=== PATIENT | male | born 1965 | race Caucasian/White ===

== ENCOUNTER 2025-02-15 19:55 | Emergency (ER) | payer MEDICARE, SELFPAY ==
--- NOTE | ~2025-02-15 | CT_ITS ---
CT cervical spine wo con Ordering provider: Emanuel Rivera MD History: . fall . Comparison: None. Technique: CT of the cervical spine was performed without contrast. Sagittal and coronal reformatted images were also obtained and reviewed. Automated exposure control and iterative reconstruction quan hnique were employed. The dose-length product was 392.73 mGy-cm. FINDINGS: VERTEBRAE: No subluxation or acute fracture. The occipital condyles are intact. Degenerative changes of the spine. DISC SPACES: Narrowing of the disc C5-C6. Uncovertebral joint osteoarthritic changes seen at the same level. Bilateral narrowing of the foramin a at the level of C3-C4, C4-C5, and C5-C6 PARASPINOUS SOFT TISSUES: Normal. IMPRESSION: No acute osseous abnormality cervical spine. Degenerative disc disease of the level of C5-C6. Multilevel intervertebral foraminal narrowing. Reviewed, dictated and finalized at location A. IMPRESSION: No acute osseous abnormality cervical spine. Degenerative disc disease of the level of C5-C6. Multilevel intervertebral fora christine narrowing.
--- NOTE | ~2025-02-15 | XR_ITS ---
XR shoulder RT min 2V Ordering provider: Emanuel Rivera MD History: . fall . Comparison: None. FINDINGS: BONES: No acute fracture or dislocation. JOINT SPACES: The acromioclavicular joint is normal. The glenohumeral joint is normal. SOFT TISSUES: Normal. IMPRESSION: No acute osseous abnormality right shoulder. Reviewed, dictated and finalized at location A.
--- NOTE | ~2025-02-15 | CT_ITS ---
CT brain wo con Ordering provider: Emanuel Rivera MD History: 59 years Male with . fall . Comparison: None. Technique: CT of the head without contrast. Radiation reduction technique utilized. The dose-length product was 681 mGy-cm. FINDINGS: BRAIN PARENCHYMA AND CSF SPACES: No midline shift, mass effect or hemorrhage. The brain parenchyma a nd CSF spaces are otherwise normal. VISUALIZED PARANASAL SINUSES: Bilateral ethmoid sinus disease. Otherwise, Well aerated. MASTOIDS: Well aerated. BONES: The bones appear intact. SOFT TISSUES: Visualized nasopharynx is normal. Superficial soft tissues are normal. IMPRESSION: No acute intracranial findings. Reviewed, dictated and finalized at location A.
--- NOTE | ~2025-02-15 | XR_ITS ---
XR ribs RT 2V Ordering provider: Emanuel Rivera MD History: . fall . Comparison: None. FINDINGS: BONES: Fracture of the anterior and the right 10th rib. Possible lucency in the lateral portion of th e 12th rib is not excluded. LUNGS: No effusions or infiltrates. No pneumothorax. SOFT TISSUES: Normal. IMPRESSION: Fracture of the anterior end of the right 10th rib. Possible lucency in the gallbladder. Clinical cor relation advised. Reviewed, dictated and finalized at location A. IMPRESSION: Fracture of the anterior end of the right 10th rib. Possible lucency in the gal lbladder. Clinical correlation advised.
[2025-02-15 19:53] VITALS: BP 129/112; PULSE 90; RESP 20; TEMP 36.7; O2SAT 100
[2025-02-15 20:20] VITALS: BP 157/91; PULSE 84; RESP 19; O2SAT 98
--- NOTE | 2025-02-15 20:27 | ED.FALL ---
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 Patient presents after he had a mechanical fall striking the right side of his head, neck and shoulder against the cabinet. Patient states he has had chronic knee pain and he fell to the ground but did not lose consciousness. No new pain or injury to the knee but he is having pain in the shoulder and right-sided rib cage and head/neck. Does not take any medications and does not take any blood thinners. Denies any other substances besides cocaine use. Was otherwise in his normal state of health. Related Data Allergies Allergy/AdvReac Type Severity Reaction Status Date / Time No Known Allergies Allergy Verified 02/15/25 20:03 Review of Systems Review of Systems: As reviewed above in HPI Exam Narrative: GENERAL: [Well-appearing, well-nourished, and in no acute distress.] HEAD: [Normocephalic, atraumatic.] EYES: [PERRLA and EOMI.] ENT: Nares clear, no rhinorrhea or epistaxis. Mucous membranes moist. NECK: Supple. CHEST: [Clear to auscultation. No respiratory distress.] Tenderness to palpation over the lateral right chest wall without any step-offs deformities. HEART: [Regular rate and rhythm]. No murmur heard. [Normal peripheral pulses.] ABDOMEN: [Soft, nondistended], [nontender], [No rigidity or guarding] EXTREMITIES: Tenderness to palpation over the right proximal shoulder/upper extremity region with slight deformity palpable. No crepitus or overlying skin changes. Pain with manipulation and movement/abduction. Distal neuro vasculature is intact, range of motion is full at the elbow, wrist and senior systems programmer strength is full. Right knee with surgical scars are intact without any laxity or new injury appreciable. Mild paraspinal tenderness over the cervical spine but no midline tenderness. SKIN: Warm, dry, no rash. NEURO: [No focal deficits]. Alert and oriented [x3.] PSYCH: [Normal mood and affect.] Course Vital Signs Vital signs: Vital Signs Temperature 36.7 C 02/15/25 19:53 Pulse Rate 90 02/15/25 19:53 Respiratory Rate 20 02/15/25 19:53 Blood Pressure 129/112 H 02/15/25 19:53 Pulse Oximetry 100 02/15/25 19:53 Oxygen Delivery Room Air 02/15/25 19:53 Temperature 36.7 C 02/15/25 19:53 Pulse Rate 79 02/15/25 22:51 Respiratory Rate 16 02/15/25 22:51 Blood Pressure 157/91 H 02/15/25 20:20 Pulse Oximetry 98 02/15/25 22:51 Oxygen Delivery Room Air 02/15/25 19:53 MDM - Fall MDM Narrative Medical decision making narrative: 59-year-old male presenting to the ER after mechanical fall. He struck the right-sided of his head and neck/shoulder against the cabinet while he fell. He states his knee buckled and gave out on him but he was able to get up unassisted. Presents from a facility where he is being treated for cocaine use. Denies any chronic medications or allergies. He is complaining of pain in his right shoulder and proximal arm as well as his head neck. He has what appears to be a deformity to his right upper extremity near the shoulder with raising concerns for fracture versus dislocation. He has no midline spinal tenderness but is complaining of significant pain and stiffness. CTs of the head cervical spine and x-rays of the right upper extremity shoulder and right-sided rib cage was also ordered. Patient was given Dilaudid for analgesia and re-evaluated. CT of the head shows no acute intracranial findings. Rib series shows a fracture of the anterior and of the right 10th rib. Possible lucency in the 12th rib not excluded but no pneumothorax or hemothorax. Shoulder x-ray shows no acute osseous abnormality. CT of the cervical spine is pending. Lidocaine patch and Sidney given for additional analgesia as well as a incentive spirometer with respiratory therapy called to provide teaching. Patient re-evaluated with improved analgesia, discussed rib fracture findings and will be discharged home upon completion of his CT cervical spine read. Patient will be sent home with as needed pain medications as well as lidocaine patches and incentive spirometry and will follow up with his regular doctor outpatient. Medical Records Attestation: I reviewed the patient's medical records. Lab Data Attestation: I reviewed the patient's lab results. Imaging Data Attestation: I personally reviewed and interpreted this imaging study as follows: My impression: Impressions Shoulder X-Ray 02/15/25 21:57 IMPRESSION: No acute osseous abnormality right shoulder. Ribs X-Ray 02/15/25 21:59 IMPRESSION: Fracture of the anterior end of the right 10th rib. Possible lucency in the gallbladder. Clinical correlation advised. Head CT 02/15/25 22:19 IMPRESSION: No acute intracranial findings. Discharge Plan Discharge Clinical Impression: Fracture of right tenth rib, CHI (closed head injury), Fall, Right shoulder pain Patient Disposition: Home Condition: Stable Instructions: Antibiotic Form, Rib Fracture (ED) Additional Instructions: You fractured the 10th rib on the right side, no other definitive injuries on your scans and imaging. We will send you home with as needed pain control medications and lidocaine patches. Use the incentive spirometer to make sure that you have good inhalation and expiration to prevent any lung issues from the rib fracture. Follow-up with regular doctor. Return with any new or worsening concerns. Patient Language: Nauruan Prescriptions: New ketorolac 10 mg tablet 10 mg PO Q8H PRN (Reason: pain) 5 Days Qty: 20 0RF Rx Instructions: maximum total duration of 5 days from all oral, intranasal, or parenteral formulations lidocaine 5 % adhesive patch,medicated 1 patch topical DAILY Qty: 15 0RF Rx Instructions: leave on most painful area for up to 12 hrs methocarbamol 750 mg tablet 750 mg PO TID PRN (Reason: pain) Qty: 20 0RF acetaminophen [Tylenol Extra Strength] 500 mg tablet 1,000 mg PO TID PRN (Reason: pain) Qty: 30 0RF Follow-up/Referrals: PHYSICIAN,SHOES SALESPERSON [Primary Care Provider] -
[2025-02-15] MEDS: HYDROmorphone HCL INJ (*CRX) 2 MG/ML VIAL 1 MG IV PUSH (20:50)
--- NOTE | 2025-02-15 21:11 | PC.NURSE ---
patient contact is ada- number is [phone]
--- OUTSIDE RECORDS SUMMARY | 2025-02-15 21:23 | XMS_ITS | Encounter Summary ---
Author Organization [facility] Address [address] [place] [address] Phone Care Team Providers Care Technical Sales Engineer Name Role Phone Gee Zuñiga MD Primary Care Provider Reason for Visit * Reason Onset Date Comments Refill Request 03/15/2013 Encounter Details Date Type Department Care Team (Late st Contact Info) Description 03/15/2013 Refill Claudia [facility] [address] [place] [place], [place] [address] Deven Theodore MD [address] [place] [address] Refill Request Social History Tobacco Use Types Packs/Day Years Used Date Smoking Tobacco: Former Comments:2 cigarettes a day Alcohol Use Standard Drinks/Week Comments No 0 (1 standard drink = 0.6 oz pur e alcohol) Sex and Gender Information Value Date Recorded Sex Assigned at Not on file 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 Last rf 03/06/13, #30 Hydrocodone. documented in this encounter Plan of Treatment Upcoming Encounters Date Type Department Care Team (Late st Contact Info) Description 03/04/2025 1:10 PM CDT Office Visit Dermatology on [facility] [address] [place], [place] [address] Ziggy Smith MD [address] [place], [place] [phone] documented as of this encounter Visit Diagnoses Not on filedocumented in this encounter Care Teams Technical Sales Engineer Relationship Specialty Start Date End Date Gee Zuñiga MD [address] [place] [address] PCP - General 11/27/20 documented as of this encounter
--- OUTSIDE RECORDS SUMMARY | 2025-02-15 21:23 | XMS_ITS | Clinical Summary ---
Author Organization [facility] Address [address] [place] [address] Phone Care Team Providers Care Welt Trimming Machine Operator Name Role Phone Na Skinner MD Primary Care Provider Allergies Active Allergy Reactions Criticality Noted Date Comments Cephalosporins Rash,Swelling High 09/25/2020 Anaphylaxis Topiramate Other (see Comments) 09/25/2020 Medications DULoxetine (CYMBALTA) [address] Aguilera ions:Chronic pain syndrome Take 1 Capsule by mouth nightly. Start after completing 3 weeks of the 30mg dose, if tolerating. 90 Capsule 2 Active Additional Information Patient not taking.Reported on 08/17/2022 HYDROcodone-acet aminophen (NORCO) 10-325 MG TabletIndication s:Chronic knee pain after total replacement of right knee joint Take 1 Tablet by mouth every 8 hours as needed for Moderate or more severe pain. 90 Tablet 3 Active HYDROcodone-acet aminophen (NORCO) 10-325 MG TabletIndication s:Chronic knee pain after total replacement of right knee joint Take 1 Tablet by mouth every 8 hours as needed for Moderate or more severe pain. 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 Family History Medical History Relation Name Comments Cancer Father Diabetes Father Relation Name Status Comments Father Mother Other Social History Tobacco Use Types Packs/Day Years Used Date Smoking Tobacco: Former Cigarettes Smokeless Tobacco: Never Tobacco Cessation:Counseling Given: Not Answered Alcohol Use Standard Drinks/Week Comments Not Currently 0 (1 standard drink = 0.6 oz pur e alcohol) PHQ-2 Answer Date Recorded Total Score - Questions 1-9 0 10/06 Sex and Gender Information Value Date Recorded Sex Assigned at Not on file 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 Gender Identity Not on file Sexual Orientation Not on file Last Filed Vital Signs Vital Sign Reading Time Taken Comments Blood Pressure 141/70 09/21/2022 1:41 PM FBI PROFILER Pulse 79 09/21/2022 1:41 PM FBI PROFILER Temperature 35.8 C (96.5 F) 09/21/2022 1:31 PM FBI PROFILER Respiratory Rate 20 09/21/2022 1:41 PM FBI PROFILER Oxygen Saturation 92% 09/21/2022 1:41 PM FBI PROFILER Inhaled Oxygen Concentration - - Weight 91.1 kg (200 lb 12.8 oz) 10/20/2022 1:10 PM FBI PROFILER Height 165.1 cm (5' 5) 10/20/2022 1:10 PM FBI PROFILER Body Mass Index 33.41 10/20/2022 1:10 PM FBI PROFILER Plan of Treatment Health Maintenance Due Date Last Done Comments Hepatitis C Virus (HCV) Screening 1965 TdaP Immunization 1965 Hepatitis B Immunization (1 of 3 - 19+ 3-dose series) 1984 Cologuard 2010 Colonoscopy 2010 Colorectal Cancer Screening 2010 Immunochemical Fecal Occult Blood 2010 Pneumococcal Immunization (50+ years) (1 of 1 - PCV) 2015 Zoster Immunization (1 of 2) 2015 PSA Discussion 2020 SARS-COV-2 Immunization ( - season) 2024 10/08/2020, 09/04/2020 Influenza Immunization (Season Ended) 2025 07/05/2022, 07/12/2019, 06/24/2019, Additional history exists Respiratory Syncytial Virus (RSV) Immunization (Adult) (1 - 1-dose 75+ series) 2040 Human Papillomavirus (HPV) Immunization Aged Out No longer eligible based on patient's age to complete this topic Meningococcal Immunization (ACWY) Aged Out No longer eligible based on patient's age to complete this topic Rotavirus Immunization Aged Out No lo nger eligible based on patient's age to complete this topic Medical Devices Implanted Type Area Tyre Fitter Device Identifier Shelf Expiration Date Model / Serial / Lot Cement Biomet - [id number] Implanted:Qty: 1 on 10/21/2020 by Rubén Hill MD at [facility] IMPLANT Right: [employer] 04/04/2025 [id number] / / [id number] Cement Biomet - [id number] Implanted:Qty: 1 on 10/21/2020 by Rubén Hill MD at [facility] IMPLANT Right: [employer]nee [employer] 04/04/2025 [id number] / / [id number] Cement [employer] - [id number] Implanted:Qty: 1 on 10/21/2020 by Rubén Hill MD at [facility] IMPLANT Right: [employer]nee [employer] 11/02/2024 [id number] / / [id number] [employer]ement [employer] - [id number] Implanted:Qty: 1 on 10/21/2020 by Rubén Hill MD at [facility] IMPLANT Right: [employer]nee [employer] 11/02/2024 [id number] / / [id number] Femoral Bushings Set Implanted:Qty: 1 on 10/21/2020 by Rubén Hill MD at [facility] Right: Knee [employer] 04/23/2025 [id number] / / [id number] Rs Axle Implanted:Qty: 1 on 10/21/2020 by Rubén Hill MD at [facility] Right: Knee [employer] 05/31/2030 [id number] / / [id number] Straight Im Stem With Screw Implanted:Qty: 1 on 10/21/2020 by Rubén Hill MD at [facility] Right: Knee [employer] 07/08/2029 [id number] / / [id number] Bowed Im Stem With Screw Implanted:Qty: 1 on 10/21/2020 by Rubén Hill MD at [facility] Right: Knee [employer] 04/04/2029 [id number] / / [id number] Resurfacing Femoral Component Implanted:Qty: 1 on 10/21/2020 by Rubén Hill MD at [facility] Right: Knee [employer] 03/31/2030 [id number] / / [id number] Tibial Bushing Implanted:Qty: 1 on 10/21/2020 by Rubén Hill MD at [facility] Right: Knee [employer] 08/19/2025 [id number] / / [id number] Tibial Bearing Implanted:Qty: 1 on 10/21/2020 by Rubén Hill MD at [facility] Right: Knee [employer] 06/25/2025 [id number] / / [id number] Modular Tibial Base With Plug Implanted:Qty: 1 on 10/21/2020 by Rubén Hill MD at [facility] Right: Knee [employer] 03/22/2025 [id number] / / [id number] Locking Pin Implanted:Qty: 1 on 10/21/2020 by Rubén Hill MD at [facility] Right: Knee [employer] 08/19/2025 [id number] / / [id number] Yoke Implanted:Qty: 1 on 10/21/2020 by Rubén Hill MD at [facility] Right: [employer]nee [employer] 09/08/2030 [id number] / / [id number] Tibial Bearing Implanted:Qty: 1 on 01/12/2022 by Rubén Hill MD at [facility] Right: Knee [employer] 07/29/2025 [id number] / / [id number] Tibial Bushing Implanted:Qty: 1 on 01/12/2022 by Rubén Hill MD at [facility] Right: [employer]nee [employer] 11/30/2026 [id number] / / [id number] Locking Pin Implanted:Qty: 1 on 01/12/2022 by Rubén Hill MD at [facility] Right: [employer]nee [employer] 12/05/2026 [id number] / / [id number] Yoke Implanted:Qty: 1 on 01/12/2022 by Rubén Hill MD at [facility] Right: Knee [employer] 12/11/2031 [id number] / / [id number] Femoral Bushings Set Implanted:Qty: 1 on 01/12/2022 by Rubén Hill MD at [facility] Right: Knee [employer] 04/27/2026 [id number] / / [id number] Rs Axle Implanted:Qty: 1 on 01/12/2022 by Rubén Hill MD at [facility] Right: Knee [employer] 06/30/2031 [id number] / / [id number] Insurance MEDICARE C [place] Care Teams Welt Trimming Machine Operator Relationship Specialty Start Date End Date Na Skinner MD [address] [place] [address] PCP - General Family Medicine 09/30/20
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
--- OUTSIDE RECORDS SUMMARY | 2025-02-15 21:23 | XMS_ITS | Encounter Summary ---
Author Organization [facility] Address [address] [place] [address] Phone Care Team Providers Care Cigarette Paper Tester Name Role Phone Gee Zuñiga MD Primary Care Provider Reason for Visit * Reason Onset Date Comments Refill Request 02/23/2013 Encounter Details Date Type Department Care Team (Late st Contact Info) Description 02/23/2013 Refill Claudia [facility] Medicine [address], [place] [phone] Deven Theodore MD [address] [place] [address] Refill Request Social History Tobacco Use Types Packs/Day Years Used Date Smoking Tobacco: Former Comments:2 cigarettes a day Alcohol Use Standard Drinks/Week Comments No 0 (1 standard drink = 0.6 oz pur e alcohol) Sex and Gender Information Value Date Recorded Sex Assigned at Not on file 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 Theodore. Last refill of hydrocodone 5/325mg 2 tabs every 4-6hours prn #30 on 02/13/13. Would you be willing to refill? * Telephone Encounter - Chelsey Queen - 02/23/2013 1:31 PM CDT Pt states he is still having pain from surgery. documented in this encounter Plan of Treatment Upcoming Encounters Date Type Department Care Team (Late st Contact Info) Description 03/04/2025 1:10 PM CDT Office Visit D[facility]at[facility] [address] [place] [address] Ziggy Smith MD [address] [place], [place] [phone] documented as of this encounter Visit Diagnoses Not on filedocumented in this encounter Care Teams Cigarette Paper Tester Relationship Specialty Start Date End Date Gee Zuñiga MD [address] [place], [place] [phone] PCP - General 11/27/20 documented as of this encounter
--- OUTSIDE RECORDS SUMMARY | 2025-02-15 21:23 | XMS_ITS | Encounter Summary ---
Author Organization [facility] Address [address] [place] [address] Phone Care Team Providers Care Nurse College Name Role Phone Gee Zuñiga MD Primary Care Provider Encounter Details Date Type Department Care Team (Late st Contact Info) Description 10/26/[address] 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 Gender Identity Not on file Sexual Orientation Not on file documented as of this encounter Plan of Treatment Upcoming Encounters Date Type Department Care Team (Late Contact Info) Description 03/04/2025 1:10 PM CDT Office Visit Dermatology [facility] [address] [place], [place] [phone] Ziggy Smith MD [address] [place] [address] documented as of this encounter Visit Diagnoses Not on filedocumented in this encounter Care Teams Nurse College Relationship Specialty Start Date End Date Gee Zuñiga MD [address] [place] [address] PCP - General 11/27/20 documented as of this encounter
--- OUTSIDE RECORDS SUMMARY | 2025-02-15 21:23 | XMS_ITS | Data Portability ---
Author Organization RODRÍGUEZ BARCENAS [facility] [employer], [place] [employer] Address [address] [place] [address] [address] [place] [address] Assessment No assessment recorded. Plan of Treatment Reminders Order Date Submit Date Provider Last Modified By Organization Details Last Modified Time Details Appointments None record ed. Lab None record ed. Referral None record ed. Procedures None record ed. Surgeries None record ed. Imaging None record ed. Medication Orders None record ed. Patient TargetsNo targets recorded. Patient Instructions Encounter Date Encounter Id Patient Instructions Last Modified By Organization Details Last Modified Time 06/22/2016 [id number] rigth and left inguinal painsharp and constant happend on 06-15 after digging 4 x 4 out of the mud if notice that the pian may radiate down to testicle bilateral he notice a bulge on left but not one on the right that happend after the event stated left inguina repair with mesh 8 years ago and on rigth 7 years ago notice pain and small subtle left inguinal hernia and only pain on the right and no hernia explained hernia repair at length The risks and complications include bleeding, infection, hematoma, seroma, numbness or pain in the groin or leg, recurrance, damage to the testicles or testicular function (males) or ovaries (females), anesthesia risks, mesh complications, inability to urinate, bowel or bladder injury, etc. Patient/guardian does understand, questions were answered, and is agreeable. also discussed that he may have increase chance for pain and numbness that may be penitentiary discussed anesthetic risk with heart lung dvt ect. he currently denies any bowel or bladder problems [email or web address] Not available 06/22/2016 18:58:04 08/03/2016 [id number] has small left inguinal herna and right and left inguinal pain had a lengthy discussion with pt this would repair hernia and may not improve his pain symptoms there is other risk and compllications discussed as well The risks and complications include bleeding, infection, hematoma, seroma, numbness or pain in the groin or leg, recurrance, damage to the testicles or testicular function (males) or ovaries (females), anesthesia risks, mesh complications, inability to urinate, bowel or bladder injury, etc. Patient/guardian does understand, questions were answered, and is agreeable. [email or web address] Not available 08/03/2016 16:23:55 09/09/2016 [id number] postop left inguinal hernia some pain will refill the pain med rtc in 1 m he siad if he feels better he will return to normal activity in 2 w [email or web address] Not available 09/09/2016 14:37:18 Reason for Referral None Reported. Results Created Date Observation Date Name Description Value Unit Range Abnormal Flag Note LastModifiedBy Organization Detail LastModifiedTime 06/21/20 16 06/16/2016 CT, abdom en + pelvi s, w/ contr ast No observ ation record ed. [email or web address] Not Available 2015 18:52:40 Result Notes None recorded. Problems Name Problem SNOMED Code Status Onset Date Resolution Date Notes Provider Name and Address Organization Details Recorded Time Left inguinal hernia 269212532 Active SWAPNA REDMOND, [address], [address], [employer] 6 16:23:55 Inguinal pain 022809742 Active AYR NYLA, [address], [address], [employer] 6 16:23:55 Problem Notes None recorded. Procedures Surgical History Date Name Laterality Status Provider Name and Address Organization Details Recorded Time 09/05/19 09 Hernia Repair completed MARIE Rose [employer] 06/22/2016 17:19:41 09/05/19 08 Hernia Repair completed MARIE Rose [employer] 06/22/2016 17:19:41 Orthopedic Surgery completed MARIE Rose [employer] 06/22/2016 17:20:09 Tonsillectomy completed Magaly Sanchez [facility] [place] [email or web address] [facility] 06/22/2016 17:20:09 Imaging Results None recorded. Procedure Notes None recorded. Medical Equipment None Reported. Allergies No known drug allergies Medications Name Sig Start Date Stop Date Status Note LastModified by Organization Details LastModified Time hydrocodone 5 mg-acetamin ophen 325 mg tablet Take 1 tablet every 6 hours by oral route. 08/03 completed SAYS DOSAGE ISN'T HIGH ENOUGH Not Available Not Available Not Available Atkinson 7.5 mg-325 mg tablet active Not Available Not Available Not Available Vitals Date Recorded Body height Body temperature Body weight Body mass index (BMI) Systolic blood pressure Diastolic blood pressure Provider Name and Address Organization Details Last Updated DateTime 7 165.1 cm 97.6 [degF] 51606.5 5 g 35 kg/m2 138 mm[Hg] 90 mm[Hg] Magaly Sanchez RN [facility] 7 14:21:26 Date Recorded Body mass index (BMI) Body temperature Body height Body weight Systolic blood pressure Diastolic blood pressure Provider Name and Address Organization Details Last Updated DateTime 6 32.3 kg/m2 97.1 [degF] 165.1 cm 07893.6 80953 g 160 mm[Hg] 90 mm[Hg] Magaly Sanchez RN [facility] [place] [employer] 6 17:06:02 Date Recorded Body height Body weight Body mass index (BMI) Body temperature Heart rate Respiratory rate Systolic blood pressure Diastolic blood pressure Provider Name and Address Organization Details Last Updated DateTime 6 165.1 cm 83361.8 8 g 33.1 kg/m2 97.6 [degF] 76 /min 18 /min 142 mm[Hg] 90 mm[Hg] Chelita Durbin [facility] 6 15:16:02 Social History Question Answer Notes LastModified by Organizat ion Details LastModified Time Tobacco Smoking Status Never Smoker Chelita liu [employer] [facility] [place] [email or web address] [facility] 08/03/2016 15:16:25 Is Blood Transfusion Acceptable In An Emergency? Yes Information not available 06/22/2016 How Much Tobacco Do You Chew? None Information not available 06/22/2016 Which Illicit Or Recreational Drugs Have You Used? NONE Information not available 06/22/2016 Live Alone Or With Others? With Others Information not available 06/22/2016 Marital Status Informatio n not available 06/22/2016 How Many Children Do You Have? 3 Information not available 06/22/2016 How Much Tobacco Do You Smoke? No Information not available 06/22/2016 Work Related Injury? Yes Information not available 06/22/2016 Sex: Unknown Functional Status Question Answer Note LastModified by Organizat ion Details LastModified Time What is your level of alcohol consumption? 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 Family History Relationship Description Onset Age of this Age Resolved Age Notes LastModified by Organization Details LastModified Time Father No current problems or disability [email or web address] Not available 08/03 15:16:18 Mother No current problems or disability [email or web address] Not available 08/03 15:16:18 Notes:SAYS EVERYONE IS HEALT HY Medical History Condition Response Coronary Artery Disease N Anesthesia complications N Other N Gout N Kidney Stones N Heart Conditions N Hyperthyroidism N Hypothyroidism N Depression N COPD N Anemia N Osteoporosis/ Degenerative disease N Deep Vein Thrombosis N Diabetes N Anxiety Disorder N Autoimmune disease N Low Cholesterol N Arthritis N Tuberculosis N Cancer N Urinary Tract Infection N Varicosities N Stroke N Diverticulitis N Asthma N High Cholesterol N GERD/Reflux N Hepatitis N Liver Disease N Heart Disease N Bronchitis N Pulmonary Embolism N Headaches N Hypertension N Kidney Disease N Past Encounters Encounter ID Performer Location Encounter Start Date Encounter Closed Date Diagnosis/Indication Diagnosis SNOMED-CT Code Diagnosis ICD10 Code Diagnosis Note [id number] DO [place] [facility] [address] [place] YOO [id number] 06/22/2016 16:51:45 06/23/2016 07:48:32 Left inguinal hernia 729241465 K40.90 Inguinal pain 207248978 R10.2 [id number] DO [place] [facility] RODRÍGUEZ FISHMAN [id number] 08/03/2016 14:21:57 08/03/2016 16:30:29 Left inguinal hernia 365456403 K40.90 Inguinal pain 683272995 R10.2 [id number] DO [facility] RODRÍGUEZ FISHMAN [id number] 09/09/2016 13:59:50 09/09/2016 14:45:29 Surgical follow-up 756122372 Z09 Health Concerns Section Related Observation LastModified by Organization Detai ls LastModified Time None Recorded Concern Status LastModified by Organization Details LastModified Time None Recorded Advance Directives Directive None Recorded Payers Insurance Date Sequence Insurance Name Policy Number Policy Vidal Covered Member ID Vidal Member ID Guarantor Name 08/06/2016 [employer] Ry Keen 10/09/2016 1 [place] BC[employer] [id number] Ry Keen [id number] Ry Keen Notes Date Note Type Note Provider Name a nd Address Organization Details Recorded Time 06/22/2016 text/html HerniaReported bypatient.Notes:[place] AT [facility] OUT [place]; THE PIPELINE THAT IS GOING THROUGH [facility]. 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 LAST WEEK HE FELT THIS PULL IN RIGHT GROIN AREA. NOW HE STATES THAT HE HAS A LUMP ON HIS LEFT GROIN AREA ALSO BECAUSE HE HAS CONTINUED TO WORK AFTER INJURING THE OTHER SIDE. SAYS THERE IS 'NO LIGHT DUTY' WITH THE JOB HE DOES. HE DID GO TO THE ER THAT NIGHT; THEY DID ABD CT, LABS, URINE. THEY SAID HE DID HAVE A RIGHT GROIN HERNIA. PT STATES HE HAD 24 HRS TO REPORT INJURY TO EMPLOYER, AND WHEN HE DID THEY REFUSED TO ACCEPT IT AN INJURY. PT STATES THAT I HAD TO GET A COUNTY SUPERVISOR BECAUSE THEY THREW MY PAPERWORK IN MY FACE WHEN I WENT TO REPORT IT. PT STATES THAT HE'S OUT OF THE HYDROCODONE AND NEEDS MORE; SAYS NEEDS A HIGHER DOSE THE SMALLER DOSE WASN'T CONTROLLING THE PAIN. KATHY BLANCAS DO [address] [place] [address], [phone], [place] - [place] [address] [employer] 06/22/2016 18:58:19 08/03/2016 text/html has some pian an omid discomfort with right pain and left pain this happend at work after he said pulled a wet heavy object KATHY BLANCAS DO [address] [place] [address], [phone], [place] - [place] [address] [employer] 08/03/2016 16:24:22 09/09/2016 text/html postop KATHY BLANCAS, [address] [place] [address], [phone], [place] [address] [employer] 09/09/2016 14:37:38
--- OUTSIDE RECORDS SUMMARY | 2025-02-15 21:23 | XMS_ITS | Encounter Summary ---
Author Organization [facility] Address [address] [place] [address] Phone Care Team Providers Care Monogram And Letter Paster Name Role Phone Na Skinner MD Primary Care Provider + Reason for Visit * Reason Comments Medication Refill Encounter Details Date Type Department Care Team ([facility] st Contact Info) Description 07/21/2022 Refill [facility] [address] [facility] [address] [place] [address] Daily Suh, MANAGER QA, MECHANICAL EQUIPMENT SALES ENGINEER [address] [facility] [address] [place] [address] Medication Refill Social History Tobacco Use Types Packs/Day Years Used Date Smoking Tobacco: Former Cigarettes Smokeless Tobacco: Never Alcohol Use Standard Drinks/Week Comments Not Currently 0 (1 standard drink = 0.6 oz pur e alcohol) PHQ-2 Answer Date Recorded Total Score - Questions 1-9 0 10/06 Sex and Gender Information Value Date Recorded Sex Assigned at Not on file 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 No / Unsure 06/22/2022 1:00 PM CDT documented as of this encounter Plan of Treatment Not on file documented as of this encounter Visit Diagnoses Diagnosis Chronic knee pain after total replacement of right knee joint documented in this encounter Additional Health Concerns Assessment Noted Time PHQ-9 Depression Total Score: 0 10/21/19 21 4:00 PM INSTRUCTIONAL SYSTEMS DESIGNER documented as of this encounter Care Teams Monogram And Letter Paster Relationship Specialty Start Date End Date Na Skinner MD [address] [place] [address] PCP - General Family Medicine 09/30/20 documented as of this encounter
--- OUTSIDE RECORDS SUMMARY | 2025-02-15 21:23 | XMS_ITS | Encounter Summary ---
Author Organization [facility] Address [address] [place] [address] Phone Care Team Providers Care Extension Course Counselor Name Role Phone Gee Zuñiga MD Primary Care Provider Reason for Visit * Reason Onset Date Comments !Other 02/09/2013 Encounter Details Date Type Department Care Team (Late st Contact Info) Description 02/09/2013 Telephone Claudia Rodriguez [facility] [address] [place], [place] [id number] Deven Theodore MD [address] [place] [address] !Other Social History Tobacco Use Types Packs/Day Years Used Date Smoking Tobacco: Former Comments:2 cigarettes a day Alcohol Use Standard Drinks/Week Comments No 0 (1 standard drink = 0.6 oz pur e alcohol) Sex and Gender Information Value Date Recorded Sex Assigned at Not on file 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 Message will be routed to Dr. Theodore as reminder when he is here next week. * Telephone Encounter - Soledad Maurer - 02/19/2013 12:09 PM CDT Pt called again about paperwork. * Telephone Encounter - Phylicia Mejia RN - 02/14/2013 11:59 AM CDT Pt's papers were received today. Form with notes on Dr. Theodore's desk for his completion. * Telephone Encounter - Jayashree Morales - 02/09/2013 2:07 PM CDT Please fax surgical paperwork to nursing staff at [facility] for work comp Fax [phone] documented in this encounter Plan of Treatment Upcoming Encounters Date Type Department Care Team (Late st Contact Info) Description 03/04/2025 1:10 PM CDT Office Visit D[facility]atology on [facility] [address] [place], [place] [phone] Ziggy Smith MD [address] [place], [place] [phone] documented as of this encounter Visit Diagnoses Not on filedocumented in this encounter Care Teams Extension Course Counselor Relationship Specialty Start Date End Date Gee Zuñiga MD [address] [place], [place] [address] PCP - General 11/27/20 documented as of this encounter
--- OUTSIDE RECORDS SUMMARY | 2025-02-15 21:24 | XMS_ITS | Continuity of Care Document ---
Author Organization [facility] Address [address] [place] [address] Phone Care Team Providers Care Dairy Processing Supervisor Name Role Phone Fred MAIARandellMercedes Unavailable Unavailable Advance Directives Directive Yes / No Effective Date File Name No Information Encounters Encounter Description Practice Location Reason(s) For Visit Diagnoses Date Provider Providers Copied on Encounter [facility], [facility], [address] [place] [address], [id number], [place] tel:[phone] [facility]- No Information Fredmaddison MejiasMercedes. [address] [place] [address], [id number], . tel:[phone] Family History Family Member Type Diagnosis Age At Onset No Information Payers Payer name Insurance type Covered republican ID Authoriza tion(s) No Information Social History Type Description Quantity Date Captured Comments Sex Male Smoking Status No Information Chief Complaint And Reason For Visit No Information Reason For Referral Reason For Referral No Information History Of Present Illness Encounter Date Complaint History Of Prese nt Illness No Information Functional Status Date Functional Assessmen t No Information Instructions Date Instruction Additional Infor mation No Information Assessments Type Assessment Date No Information Patient Care Teams Name Effective Dates (start - stop) Status Members No Information
--- OUTSIDE RECORDS SUMMARY | 2025-02-15 21:24 | XMS_ITS | Encounter Summary ---
Author Organization [facility] Address [address] [place] [address] Phone Care Team Providers Care Pattern Cleaner Name Role Phone Gee Zuñiga MD Primary Care Provider Encounter Details Date Type Department Care Team (Late Contact Info) Description 10/08/2019 Patient Related Communication [facility] 6th Floor Neurology [address] [place], [place] [address] Hakan Simon MD Social History Tobacco Use Types Packs/Day Years Used Date Smoking Tobacco: Former Smokeless Tobacco: Never Comments:social Alcohol Use Standard Drinks/Week Comments No 0 (1 standard drink = 0.6 oz pur e alcohol) Sex and Gender Information Value Date Recorded Sex Assigned at Not on file 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 Gender Identity Not on file Sexual Orientation Not on file documented as of this encounter Plan of Treatment Upcoming Encounters Date Type Department Care Team (Late st Contact Info) Description 03/04/2025 1:10 PM CDT Office Visit D[facility]atology [facility] [address] [place], [place] [phone] Ziggy Smith MD [address] [place], [place] [address] documented as of this encounter Visit Diagnoses Not on filedocumented in this encounter Additional Health Concerns Assessment Noted Time A Hypertension Plan of Care has been documented for the patient 08/24/2019 2:44 PM DREDGEMASTER documented as of this encounter Care Teams Pattern Cleaner Relationship Specialty Start Date End Date Gee Zuñiga MD [facility] [place] [address] PCP - General 11/27/20 documented as of this encounter
--- OUTSIDE RECORDS SUMMARY | 2025-02-15 21:24 | XMS_ITS | Encounter Summary ---
Author Organization [facility] Address [address] [place] [address] Phone Care Team Providers Care Contingents Supervisor Name Role Phone Na Skinner MD Primary Care Provider + Encounter Details Date Type Department Care Team (Latest Contact Info) Description 10/20/2020 Transcribe Orders [facility] [address] [place] [address] Rubén Hill MD [address] [place] [id number] Preop testing (Primary Dx) Social History Tobacco Use Types Packs/Day Years Used Date Smoking Tobacco: Former Cigarettes Smokeless Tobacco: Never Alcohol Use Standard Drinks/Week Comments Not Currently 0 (1 standard drink = 0.6 oz pur e alcohol) PHQ-2 Answer Date Recorded Total Score - Questions 1-9 0 10/06 Sex and Gender Information Value Date Recorded Sex Assigned at Not on file Legal Sex Male 8:16 PM MANAGER STUDENT SERVICES Gender Identity Not on file Sexual Orientation Not on file COVID-19 Exposure Response Date Recorded In the last month, have you been in contact with someone who was confirmed or suspected to have Coronavirus / COVID-19? No / Unsure 10/21/2020 6:08 AM MANAGER STUDENT SERVICES documented as of this encounter Plan of Treatment Not on file documented as of this encounter Results * TYPE & SCREEN (CROSSMATCH CONVERTIBLE) (10/22/2020 6:00 AM MANAGER STUDENT SERVICES) ABO TYPING O 10/22/2020 7:46 AM MANAGER STUDENT SERVICES [facility] RH POS 10/22/2020 7:46 AM MANAGER STUDENT SERVICES [facility] ABSC NEG 10/22/2020 7:46 AM MANAGER STUDENT SERVICES [facility] Blood Venipuncture / Unknown 10/22/2020 6:00 AM MANAGER STUDENT SERVICES 10/22/2020 6:09 AM MANAGER STUDENT SERVICES Rubén Hill MD BLOOD BANK ORDERABLES Edite d Result - Final Performing Organization Address [facility] Co de Phone Number [facility] [address] [place] [phone] * CROSSMATCH W/ ABO & RH, ANTIBODY SCREEN (10/20/2020 11:48 AM MANAGER STUDENT SERVICES) ABO TYPING O 10/20/2020 2:29 PM MANAGER STUDENT SERVICES [facility] RH POS 10/20/2020 2:29 PM MANAGER STUDENT SERVICES [facility] ABSC NEG 10/20/2020 2:29 PM MANAGER STUDENT SERVICES [facility] Blood Venipuncture / Unknown 10/20/2020 11:48 AM MANAGER STUDENT SERVICES 10/20/2020 1:17 PM MANAGER STUDENT SERVICES Rubén Hill MD BLOOD BANK ORDERABLES Edite d Result - Final Performing Organization Address [facility] de Phone Number [facility] [address] [place] [phone] documented in this encounter Visit Diagnoses Diagnosis Preop testing- Primary Preoperative examination, unspecified documented in this encounter Additional Health Concerns Infection Onset Date Last Indicated Resolved Time PUI 01/11/2022 01/12/2022 01/12/2022 8:35 AM CDT documented as of this encounter Care Teams Contingents Supervisor Relationship Specialty Start Date End Date Na Skinner MD [address] [place] [address] (Fax) PCP - General Family Medicine 09/30/20 documented as of this encounter
--- OUTSIDE RECORDS SUMMARY | 2025-02-15 21:24 | XMS_ITS | Encounter Summary ---
Author Organization [facility] Address [address] [place] [address] Phone Care Team Providers Care Batterboard Setter Name Role Phone Gee Zuñiga MD Primary Care Provider Reason for Visit * Reason Onset Date Comments Medication Problem 09/07/2011 Encounter Details Date Type Department Care Team (Late st Contact Info) Description 09/07/2011 Telephone [facility] [address] [place], [place] [phone] oSny Mayer MD [address] [place] [address] Medication Problem Social History Tobacco Use Types Packs/Day Years Used Date Smoking Tobacco: Every Day Comments:2 cigarettes a day Alcohol Use Standard Drinks/Week Comments No 0 (1 standard drink = 0.6 oz pur e alcohol) Sex and Gender Information Value Date Recorded Sex Assigned at Not on file Legal Sex Male 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 Thanks. EAR PLANT TECHNICAL ADVISOR * Telephone Encounter - Sunshine Dejesus RN - 09/07/2011 9:41 AM CST Instructions given for Neurontin titration, 300mg at HS for 4 days, then take 300mg twice daily for4 days then increase to 3 times daily for the duration of the prescription EAR PLANT TECHNICAL ADVISOR * Telephone Encounter - Sony Mayer MD - 09/07/2011 9:34 AM CST He may try Neurontin 300 mg starting at HS at increasing to TID. SR EAR PLANT TECHNICAL ADVISOR * Telephone Encounter - Susnhine Dejesus, MARIE - 09/07/2011 8:49 AM CST Patient stopped his Topamax due to blurry vision, next appointment is October 01, wondering if hecan get another medicine EAR PLANT TECHNICAL ADVISOR * Telephone Encounter - Luz Rosario - 09/07/2011 8:44 AM CST Patient called and stated that he is having blury vision and stopped taking medication on Tuesday09/03/11 and states that he would like a different medication sent to the pharmacy in [place] pleaseadvise EAR PLANT TECHNICAL ADVISOR documented in this encounter Plan of Treatment Upcoming Encounters Date Type Department Care Team (Late st Contact Info) Description 03/04/2025 1:10 PM CDT Office Visit [facility]atology [facility] [address] [place] [address] Ziggy Smith MD [address] [place] [place], [place] [address] documented as of this encounter Visit Diagnoses Not on filedocumented in this encounter Care Teams Batterboard Setter Relationship Specialty Start Date End Date Gee Zuñiga MD [address] [place] [address] PCP - General 11/27/20 documented as of this encounter
--- OUTSIDE RECORDS SUMMARY | 2025-02-15 21:24 | XMS_ITS | Encounter Summary ---
Author Organization [facility] Address [address] [place] [address] Phone Care Team Providers Care Aviation Consultant Name Role Phone Gee Zuñiga MD Primary Care Provider Reason for Visit * Reason Onset Date Comments Student Life Vice President Referral 07/11/2020 Refer ral to Ortho Encounter Details Date Type Department Care Team (Late Contact Info) Description 07/11/2020 Telephone Non [facility] Referring Na Leonard MD [address] [place] [phone] (Fax) Student Life Vice President Referral (Referral to Ortho) Social History Tobacco Use Types Packs/Day Years Used Date Smoking Tobacco: Former Smokeless Tobacco: Never Comments:social Alcohol Use Standard Drinks/Week Comments No 0 (1 standard drink = 0.6 oz pur e alcohol) Sex and Gender Information Value Date Recorded Sex Assigned at Not on file 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 LLATE LAW CLERK documented in this encounter Plan of Treatment Upcoming Encounters Date Type Department Care Team (Late st Contact Info) Description 03/04/2025 1:10 PM CDT Office Visit [facility] [address] [place] [address] Ziggy Smith MD [address] [place] [address] documented as of this encounter Visit Diagnoses Not on filedocumented in this encounter Additional Health Concerns Assessment Noted Time A Hypertension Plan of Care has been documented for the patient 08/24/2019 2:44 PM APPELLATE LAW CLERK documented as of this encounter Care Teams Aviation Consultant Relationship Specialty Start Date End Date Gee Zuñiga MD [address] [place], [place] [address] PCP - General 11/27/20 documented as of this encounter
--- OUTSIDE RECORDS SUMMARY | 2025-02-15 21:24 | XMS_ITS | Encounter Summary ---
Author Organization [facility] Address [address] [place] [address] Phone Care Team Providers Care Brand Marketing Intern Name Role Phone Gee Zuñiga MD Primary Care Provider Encounter Details Date Type Department Care Team (Late Contact Info) Description 12/08/2020 Telephone [facility] [address] [place] [address] Natty Smith, DO [address] [id number] Social History Tobacco Use Types Packs/Day Years Used Date Smoking Tobacco: Former Smokeless Tobacco: Never Comments:social Alcohol Use Standard Drinks/Week Comments No 0 (1 standard drink = 0.6 oz pur e alcohol) Sex and Gender Information Value Date Recorded Sex Assigned at Not on file 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 No / Unsure 11/12/2020 11:11 AM VETERINARY ASSISTANT documented as of this encounter Plan of Treatment Upcoming Encounters Date Type Department Care Team (Late Contact Info) Description 03/04/2025 1:10 PM CDT Office Visit Dermatology [facility] [address] [place] [address] Ziggy Smith MD [address] [place], [place] [address] documented as of this encounter Visit Diagnoses Not on filedocumented in this encounter Additional Health Concerns Assessment Noted Time A Hypertension Plan of Care has been documented for the patient 08/24/2019 2:44 PM VETERINARY ASSISTANT documented as of this encounter Care Teams Brand Marketing Intern Relationship Specialty Start Date End Date Gee Zuñiga MD [address] [place] [address] PCP - General 11/27/20 documented as of this encounter
--- OUTSIDE RECORDS SUMMARY | 2025-02-15 21:24 | XMS_ITS ---
Author Organization [facility] Address [address] [place] [address] Care Team Providers Care Practice Performance Manager Name Role Phone RichardFortunato valenzuela Primary Care Provider [phone] KingsleyPk robbin Unavailable [phone] Allergies No Known Allergies Results Component Value Reference Range Notes 12 Panel Urine Drug Screen Reviewed date:02/15/2025 11:41:06 AM Interpretation: Performing Lab: Notes/Report: THC neg BEATA POS MOP (OPI) neg AMP neg MET neg BAR neg BZO neg MDMA neg MTD neg OXY neg PCP neg BUP neg Breathalyzer Reviewed date:02/15/2025 12:27:42 PM Interpretation: Performing Lab: Notes/Report: AME 0.000 REASON FOR VISIT MRU Medications Medication SIG (Take, Route, Frequency, Duration) Notes Start Date End Date Status Buprenorphine HCl-Naloxone HCl 4-1 MG 1 film under the tongue and allow to dissolve Sublingual twice a day for 7 days 02/15/2025 Active Senna 8.6 MG 2 tablets at bedtime Orally Once a day for 30 days 02/15/2025 Active traMADol HCl 50 MG 1 tablet as needed Orally every 4 hours Unknown Social History Tobacco Use: Social History Observation Description Date Details (start date - stop date) Current some da y smoker NA - NA Sex Assigned At : Social History Observation Description Sex Assigned At Male Tobacco Control (Standard) Question Answer Notes Tobacco use: Current some day smoker Problems Problem Type SNOMED Code ICD Code Onset Dates Problem Status W/U Status Risk Notes Problem Overweight (738957589) Over weight (E66.3) Active confirmed Problem Cocaine abuse (22373992) Cocaine abuse (F14.10) Active confirmed Problem Opioid use disorder (8124835425) Opioid use disorder (F11.99) Active confirmed Problem Osteoarthritis (748111240) Osteoarthritis (M19.90) Active confirmed Vital Signs Weight 196.4 lbs 02/15/2025 Height 66 in 02/15/2025 BMI 31.7 kg/m2 02/15/2025 Blood pressure systolic 148 mm Hg 02/16/20 25 Blood pressure diastolic 98 mm Hg 025 Heart Rate 86 /min 02/15/2025 Oximetry 98 % 02/15/2025 Temperature 97.3 degrees Fahrenheit 02/16/20 25 Respiratory Rate 16 /min 02/15/2025 Encounters Encounter Location Date Provider Diagnosis [facility] [address] [place] [address] 02/15/2025 Deniz Kingsley Cocaine abuse F14.10 ; Opioid use disorder F11.99 ; Right knee pain, unspecified chronicity M25.561 ; Osteoarthritis M19.90 ; Lipid screening Z13.220 ; Screening for diabetes mellitus Z13.1 ; Dorsalgia of lumbosacral region M54.50 ; Over weight E66.3 ; Exposure to potential infection Z20.9 ; Fatigue R53.83 ; Screening for colon cancer Z12.11 and 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.86 Assessments Encounter Date Diagnosis (ICD Code) Assessment Notes Treatment Notes Treatment Clinical Notes Section Notes 02/15/2025 Cocaine abuse (ICD-10 - F14.10) 02/15/2025 Opioid use disorder (ICD-10 - F11.99) 02/15/2025 Right knee pain, unspecified chronicity (ICD-10 - M25.561) 02/15/2025 Osteoarthritis (ICD-10 - M19.90) 02/15/2025 Lipid screening (ICD-10 - Z13.220) 02/15/2025 Screening for diabetes mellitus (ICD-10 - Z13.1) 02/15/2025 Dorsalgia of lumbosacral region (ICD-10 - M54.50) 02/15/2025 Over weight (ICD-10 - E66.3) 02/15/2025 Exposure to potential infection (ICD-10 - Z20.9) 02/15/2025 Fatigue (ICD-10 - R53.83) 02/15/2025 Screening for colon cancer (ICD-10 - Z12.11) 02/15/2025 Sciatica associated with disorder of lumbar spine (ICD-10 - M53.86) MAY USE HOME TENS UNIT NEEDED FOR BACK PAIN, SCIATICA, KNEE PAIN 02/15/2025 Other [place] PDMP WITH 18 NORCO 12/22/2024 KEZIA SIGNED FOR RECORDS FROM PCP Plan Of Treatment Medication Medication Name Sig Start Date Stop Date Notes Buprenorphine HCl-Naloxone H Cl 4-1 MG 1 film under the tongue and allow to dissolve Sublingual twice a day for 7 days 02/15/2025 Senna 8.6 MG 2 tablets at bedtime Orally Once a day for 30 days 02/15/2025 Pending Test Test Name Order Date HIV Screen *HIV 1, 2 Ab, p24 Ag ([id number]) 02/15/2025 Occult Blood, Fecal, [place] (294672) 025 Hemoglobin A1c* 02/15/2025 CBC With Differential/Platelet* 02/16/20 25 Hepatitis B Surface Antigen (HBsAg Scree n) 02/15/2025 C-Reactive Protein, Quant 02/15/2025 Hepatitis C Virus Antibody w/Rflx to Eusebio ntitative Real-time PCR ([id number]) 02/15/2025 Lipid Panel* 02/15/2025 CMP 14 Comprehensive Metabolic Panel* TSH Rfx on Abnormal to Free T4 5 QuantiFERON-TB Gold Plus ([id number]) 2024 Rapid Plasma Reagin (RPR) Te st With Reflex to Quantitative RPR and Confirmatory Treponema pallidum Antibodies 02/15/2025 Next Appt Details Follow Up: 1 Week, Reason: O UD, LAB RESULTS Progress Notes * Ry KEENDOB:1965 (59 yo M)Acc No.[id number]:02/15/2025 Patient: Ry FAUSTIN Provider: Siobhan Kingsley :1965 A ge:59 Y S ex:Male Date:02/15/2025 Address:[address] [place] [address] [address] , [id number] Pcp:Fortunato Dick Check In:08:58 AM APPEALS REVIEWER VETERAN Subjective: * Chief Complaints: * M RU MH * HPI: I nterim History: Emergency room visit Y es. Was hospitalized N o. AD[facility]ITTING TO [facility] FOR OUD, CRACK COCAINE USE, OPIOID USE. 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 HARDWARE FAILED MULTIPLE TIMES. TOTAL OF 13 SURGERIES. SEVERE PAIN WITH WALKING AND MODERATE AT REST. USES TENS. HAS INCREASING PAIN IN LEFT KNEE OVER THE PAST SEVERAL MONTHS. NO SWELLING THERE. RIGHT KNEE SWELLS INTERMITTENTLY. DENIED HX OF INFECTION IN KNEE. GOES TO HOSPITAL ABOUT TWICE PER MONTH FOR RIGHT KNEE ARTHROCENTESIS. WAS TAKING RX OXYCODONE THEN HYDROCODONE THEN TRAMADOL SINCE 2017. WEANED HIM OFF OF HYDROCODONE. BUT HE WAS BRINGIN HOME OTC TRAMADOL FROM [facility] [place] TO [place]. SHE FOUND OUT AND TOOK THAT AWAY. HIS LAST DOSE WAS ABOUT A WEEK AGO. STARTED SMOKING CRACK COCAINE LAST MOTH OR SO WHILE WAS AT WORK. LAST USE A FEW DAYS AGO. SHE FOUND HIS TRAMADOL AND TOOK IT A WEEK AGO (AFTER HIS LAST DOSE). SHE TOLD HIM THEN THAT HE MUST GO TO INPATIENT REHAB. HE DENIED TOBACCO, ALCOHOL, OR CANNABIS USE. DENIED METH USE. DENIED OTHER RECR DRUGS. D epression Screening: PHQ-9 L ittle interest or pleasure in doing things?More than half the days F eeling down, depressed, or hopeless N ot at all T rouble falling or staying asleep, or sleeping too much N ot at all F eeling tired or having little energy N ot at all P oor appetite or overeating N ot at all F eeling bad about yourself or that you are a failure, or have let yourself or your family down S everal days T rouble concentrating on things, such as reading the newspaper or watching television N ot at all M oving or speaking so slowly that other people could have noticed; or the opposite, being so fidgety or restless that you have been moving around a lot more than usual N early every day T houghts that you would be better off or of hurting yourself in some way N ot at all T otal Score 6 I nterpretation M ild Depression C SSRS Interpretation and Follow Up Plan: CSSRS Interpretation and Follow Up Plan C SSRS Screen documented using SF Y es R isk Disposition from SF L ow - No Follow Up Plan Required F ollow Up Plan N o Follow Up Plan required at this time. T imeframe of Screening Adams Villavicencio creening: Rothschild Suicide Severity Rating Scale (LF) D o you want to initiate with S creener form 1 . Wish to be : Have you wished you were or wished you could go to sleep and not wake up? N o 2 . Suicidal Thoughts: Have you actually had any thoughts of killing yourself? N o 6 . Suicide Behavior Question: Have you ever done anything,started to do anything, or prepared to end your life? N o I nterpretation: L ow Risk * ROS: B asic ROS: Admits C onstipation. D enies S hortness of breath.?Denies C hest pain. D enies A bdominal Pain. D enies B lood in Stool. D enies B lood in urine. A dmits B ack Problems. A dmits J oint Stiffness. A dmits P ainful joints. A dmits S wollen joints. A dmits S ubstance Abuse. ? * Medical History: * Surgical History: 1 3 surgeries on right knee CARPAL TUNNEL SURGERY tonsillectomy multiple hernia repairs * Hospitalization/Major Diagno stic Procedure: u lcer * Family History: F ather: . M other: alive, healthy. 1 brother(s) , 2 sister(s) - healthy. 1 son(s) , 2 daughter(s) - healthy. . * Social History: P rimary Social History: L iving Arrangement L iving Arrangement: I ndependent Living I s this a supportive environment? Y es Alcohol Use A lcohol Use Frequency: N ever Illicit Substance Usage I llicit Substance Usage: Y es S ubstance Used: C ocaine, Prescription Drugs F requency Cocaine is used: o nly used for about a week when out of pain meds. F requency prescription drugs are abused: s bing he started out on percocet for his knee pain, but starting weening off and switched to Hydrocodone, and is now on the tramadol Employment Status E mployment Status: O n Disability Single Question Alcohol Screening H ow may times in the past year have you had (4 for women, or 5 for men) or more drinks in a day? 0 T obacco Use: T obacco Control (Standard) T obacco use: C urrent some day smoker M iscellaneous: M ethod of learning P referred method of learning: R eading,Discussion,Demonstration,Hearing * Medications: U nknowntraMADol HCl 50 MG Tablet 1 tablet as needed Orally every 4 hours Unknown traMADol HCl 50 MG Tablet 1 tablet as needed Orally every 4 hours * Allergies: N .K.D.A.no[Allergies Verified] Objective: * Vitals: I nitials: kb, Wt:196.4, Ht: 66, BMI:31.7, BP:148/98, HR:86, Oxygen sat %:98, Temp:97.3, RR:16, Pain scale:10. * Examination: G eneral Examination: GENERAL APPEARANCE: w ell developed, well nourished, in no acute distress. HEAD: n ormocephalic, atraumatic. EYES: P ERRLA, sclera and conjunctiva clear. EARS External ears intact. NOSE: n lisbeth patent, no lesions, septum intact. ORAL CAVITY: m ucosa moist. THROAT: n o erythema, no exudate, pharynx normal. NECK/THYROID: n o JVD, no goiter. SKIN: w arm and dry, no rashes, TENS UNIT IN PLACE ON LEFT POSTERIOR KNEE. HEART: r egular rate and rhythm, no murmurs. LUNGS: r espirations regular and easy, clear to auscultation bilaterally. ABDOMEN: b owel sounds present, soft, nontender, nondistended, no masses palpable, no organomegaly . MUSCULOSKELETAL: R IGHT KNEE WITH SCAR, ENARLARGED VS LEFT, TENDER LATERALLY TO LIGHT TOUCH. LEFT KNEE WITH BONY ENLARGEMENT, MODERATELY LIMITED FLEXION. GAIT WADDLING AND ANTALGIC, MOSTLY TO RIGHT.. EXTREMITIES: n o clubbing, cyanosis, or edema. NEUROLOGIC: c ranial nerves 2-12 grossly intact. A ctivity Permissions and Medication Self Administration: Activity Level & Medication Self-Administration Permissions? A ctivity Level Permitted: T he patient/client may fully take part in physical fitness programming including aerobic, muscular strength, and flexibility training without restriction. M edication Self-Administration Permissions:?Medications may be self-administered by the patient/client under the supervision of approved staff or administered by nursing staff. Assessment: * Assessment: 1. C ocaine abuse - F14.10 2 . O pioid use disorder - F11.99 (Primary) 3 . R ight knee pain, unspecified chronicity - M25.561 4 . O steoarthritis - M19.90 5 . L ipid screening - Z13.220 6 . S creening for diabetes mellitus - Z13.1 7 . D orsalgia of lumbosacral region - M54.50 8 . O jose francisco weight - E66.3 9 . E xposure to potential infection - Z20.9 1 0. F atigue - R53.83 1 1. S creening for colon cancer - Z12.11 1 2. S ciatica associated with disorder of lumbar spine - M53.86 Plan: * Treatment: Value Reference Range B AC 0.000 ?LAB: 12 Panel Urine Drug Screen (Collection Date & Time - 02/15/2025)* Value Reference Range T HC neg * C OC POS * M OP (OPI) neg * A MP neg * M ET neg * B AR neg * B ZO neg * M DMA neg * M TD neg * O XY neg * P CP neg * B UP neg ?LAB: CMP 14 Comprehensive Metabolic Panel* (Collection Date & Time - 02/15/2025 12:29 PM)2.?Right knee pain, unspecified chronicity?LAB: C-Reactive Protein, Quant (Collection Date & Time - 02/15/2025 12:29 PM)3.?Lipid screening?LAB: Lipid Panel* (Collection Date & Time - 02/15/2025 12:29 PM) 4.?Screening for diabetes mellitus?LAB: Hemoglobin A1c* (Collection Date & Time - 02/15/2025 12:29 PM) 5.?Dorsalgia of lumbosacral region?LAB: CBC With Differential/Platelet* (Collection Date & Time - 02/15/2025 12:29 PM)6.?Exposure to potential infection?LAB: HIV Screen *HIV 1, 2 Ab, p24 Ag ([id number]) (Collection Date & Time - 02/15/2025 12:29 PM) ?LAB: Hepatitis B Surface Antigen (HBsAg Screen) (Collection Date & Time - 02/15/2025 12:29 PM) ?LAB: Hepatitis C Virus Antibody w/Rflx to Quantitative Real-time PCR ([id number]) (Collection Date & Time - 02/15/2025 12:29 PM) ?LAB: QuantiFERON-TB Gold Plus ([id number]) (Collection Date & Time - 02/15/2025 12:29 PM) ?LAB: Rapid Plasma Reagin (RPR) Test With Reflex to Quantitative RPR and Confirmatory Treponema pallidum Antibodies (Collection Date & Time - 02/15/2025 12:29 PM)7.?Fatigue?LAB: TSH Rfx on Abnormal to Free T4 (Collection Date & Time - 02/15/2025 12:29 PM)8.?Screening for colon cancer?LAB: Occult Blood, Fecal, [place] ([id number])9.?Sciatica associated with disorder of lumbar spine? Clinical Notes: MAY USE HOME TENS UNIT NEEDED FOR BACK PAIN, SCIATICA, KNEE PAIN??10.?Others? Clinical Notes: [place] WITH 18 NORCO 12/22/2024 KEZIA SIGNED FOR RECORDS FROM PCP?? * Recommended Wellness and Pre vention Guidelines: * S tatus A lert L ast Done N ext Due A ction Taken N ONCOMPLIANT C olorectal cancer screening - 0 02/15/2025 - N ONCOMPLIANT H IV screening - 0 02/15/2025 - * Procedure Codes: 3 008F BODY MASS INDEX [id number] SPECIMEN [id number] TB TEST, CELL IMMUN MEASURE * Preventive Medicine: Counseling: S MOKING: Patient counselled on the dangers of tobacco use and urged to quit. . C are goal follow-up plan: BMI management provided Y es Above Normal BMI Follow-up L ifestyle education regarding diet * Follow Up: 1 Week (Reason: OUD, LAB RESULTS) * * Sign off status: Completed true * Provider: Siobhan Kingsley Date: 0 02/15/2025 Generated for Brayden cardenas/Trini/eTransmitting on: 0 02/15/2025 09:23 PM CDT History and Physical Notes * HPI (History of Present Illness) Category Sub-Category Detail Notes Category Not es Interim History Was hospitalized No ADMITTING TO [facility] FOR OUD, CRACK COCAINE USE, OPIOID USE. 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 HARDWARE FAILED MULTIPLE TIMES. TOTAL OF 13 SURGERIES. SEVERE PAIN WITH WALKING AND MODERATE AT REST. USES TENS. HAS INCREASING PAIN IN LEFT KNEE OVER THE PAST SEVERAL MONTHS. NO SWELLING THERE. RIGHT KNEE SWELLS INTERMITTENTLY. DENIED HX OF INFECTION IN KNEE. GOES TO HOSPITAL ABOUT TWICE PER MONTH FOR RIGHT KNEE ARTHROCENTESIS. WAS TAKING RX OXYCODONE THEN HYDROCODONE THEN TRAMADOL SINCE 2017. WEANED HIM OFF OF HYDROCODONE. BUT HE WAS BRINGIN HOME OTC TRAMADOL FROM [place] [place] TO [place]. SHE FOUND OUT AND TOOK THAT AWAY. HIS LAST DOSE WAS ABOUT A WEEK AGO. STARTED SMOKING CRACK COCAINE LAST MOTH OR SO WHILE WAS AT WORK. LAST USE A FEW DAYS AGO. SHE FOUND HIS TRAMADOL AND TOOK IT A WEEK AGO (AFTER HIS LAST DOSE). SHE TOLD HIM THEN THAT HE MUST GO TO INPATIENT REHAB. HE DENIED TOBACCO, ALCOHOL, OR CANNABIS USE. DENIED METH USE. DENIED OTHER RECR DRUGS. Emergency room visit Yes Depression Screening PHQ-9 Little inte rest or pleasure in doing things: More than half the days Feeling down, depressed, or hopeless: No t at all Trouble falling or staying asleep, or sl eeping too much: Not at all Feeling tired or having little energy: N ot at all Poor appetite or overeating: Not at all Feeling bad about yourself o r that you are a failure, or have let yourself or your family down: Several days Trouble concentrating on thi ngs, such as reading the newspaper or watching television: Not at all Moving or speaking so slowly that other people could have noticed; or the opposite, being so fidgety or restless that you have been moving around a lot more than usual: Nearly every day Thoughts that you would be b jonah off or of hurting yourself in some way: Not at all Total Score: 6 Interpretation: Mild Depression Screening Rothschild Suicide Sev erity Rating Scale (LF) Do you want to initiate with: Screener form 1. Wish to be : Have you wished you were or wished you could go to sleep and not wake up?: No 2. Suicidal Thoughts: Have you actually had any thoughts of killing yourself?: No 6. Suicide Behavior Question: Have you ever done anything,started to do anything, or prepared to end your life?: No Interpretation:: Low Risk CSSRS Interpretation and Follow Up Plan CSSRS Interpretation and Follow Up Plan CSSRS Screen documented using SF: Yes Risk Disposition from SF: Low - No Follo w Up Plan Required Follow Up Plan: No Follow Up Plan requir ed at this time. Timeframe of Screening: Today Examination Category Sub-Category Detail Notes Category Not es General Examination GENERAL APPEARANCE: well dev eloped, well nourished, in no acute distress HEAD: normocephalic, atrau matic EYES: PERRLA, sclera and c onjunctiva clear EARS External ears intact NOSE: nares patent, no les ions, septum intact THROAT: no erythema, no exud ate, pharynx normal NECK/THYROID: no JVD, no goiter HEART: regular rate and rhy thm, no murmurs LUNGS: respirations regular and easy, clear to auscultation bilaterally ABDOMEN: bowel sounds present , soft, nontender, nondistended, no masses palpable, no organomegaly NEUROLOGIC: cranial nerves 2-12 grossly intact SKIN: warm and dry, no alexandra hes, TENS UNIT IN PLACE ON LEFT POSTERIOR KNEE EXTREMITIES: no clubbing, cyanosi s, or edema MUSCULOSKELETAL: RIGHT KNEE WITH SCAR , ENARLARGED VS LEFT, TENDER LATERALLY TO LIGHT TOUCH. LEFT KNEE WITH BONY ENLARGEMENT, MODERATELY LIMITED FLEXION. GAIT WADDLING AND ANTALGIC, MOSTLY TO RIGHT. ORAL CAVITY: mucosa moist Activity Permissions and Medication Self Administration Activity Level & Medication Self-Administration Permissions Activity Level Permitted:: The patient/client may fully take part in physical fitness programming including aerobic, muscular strength, and flexibility training without restriction. Medication Self-Administrati on Permissions:: Medications may be self- administered by the patient/client under the supervision of approved staff or administered by nursing staff.
--- OUTSIDE RECORDS SUMMARY | 2025-02-15 21:24 | XMS_ITS ---
Author Organization [facility] Address [address] [place] [address] Care Team Providers Care Night Clerk Auditor Name Role Phone Fortunato Dick Primary Care Provider Helen Painter Unavailable [phone] REASON FOR VISIT Admissions Assessment Social History Tobacco Use: Social History Observation Description Date Details (start date - stop date) Current some da y smoker NA - NA Sex Assigned At : Social History Observation Description Sex Assigned At Male PRAPARE Question Answer Notes Date Completed/Updated: 02/15/2025 What is your current housing situation? I have h ousing Are you worried about losing your housing? No What is the highest level of school that you have finished? High school diploma or GED What is your current work situation? Oth erwise unemployed but not seeking work (ex. student, retired, disabled, unpaid primary direct care counselor) In the past year, have you o r any family members you live with been unable to get any of the following when it was really needed? Check all that apply I do not have problems meeting my needs Has lack of transportation k ept you from medical appointments, meetings, work or from getting things needed for daily living? No How often do you see or talk to people that you care about and feel close to? (For example: talking to friends on the phone, visiting friends or family, going to gnosticist or club meetings) More than 5 times a week How stressed are you? Stress is when someone feels tense, nervous, anxious, or can\t sleep at night because their mind is troubled A little bit In the past year have you sp ent more than 2 nights in a row in a fci, group home, senior living center, or juvenile correctional facility? No Are you a refugee? I choose not to answer this q uestion What country are you from? I choose not to answe r this question Do you feel physically and e motionally safe where you currently live? Yes In the past year, have you b een afraid of your partner or ex-partner? No PRAPARE Score: 5 Tobacco Control (Standard) Question Answer Notes Tobacco use: Current some day smoker Encounters Encounter Location Date Provider Diagnosis [facility] [address] [place] [address] 02/15/2025 Helen Painter Cocaine abuse F14.10 and Opioid use disorder F11.99 Assessments Encounter Date Diagnosis (ICD Code) Assessment Notes Treatment Notes Treatment Clinical Notes Section Notes 02/15/2025 Cocaine abuse (ICD-10 - F14.10) 02/15/2025 Opioid use disorder (ICD-10 - F11.99) 02/15/2025 Other Clinician met w [facility] client to assess needs for residential services. Clinician gathered information regarding historical presentation of mental health and substance use symptoms including withdrawal, psychiatric hospitalization history and presenting concern. Clinician conducted PHQ9 and CSSRS assessments as well as social drivers of health screening for the purposes of identifying additional service needs. Plan Of Treatment Treatment Notes Assessment Notes Other Clinician met with stuart ryan to assess needs for residential services. Clinician gathered information regarding historical presentation of mental health and substance use symptoms including withdrawal, psychiatric hospitalization history and presenting concern. Clinician conducted PHQ9 and CSSRS assessments as well as social drivers of health screening for the purposes of identifying additional service needs. Next Appt Details Follow Up: prn, Reason: Progress Notes * Ry KEENDOB:1965 (59 yo M)Acc No.[id number]:02/15/2025 Patient: Ry FAUSTIN Provider: Diego Painter LCSW :1965 A ge:59 Y S ex:Male Date:02/15/2025 Address:[address] [place], [place] [id number] Pcp:Fortunato Dick Subjective: * Chief Complaints: * A dmissions Assessment * HPI: P sychiatric Assessment - Current Symptoms: Primary concern today A dmitting today for [facility]idential 28 day program. O verview of Mental Health Symptoms P HQ9 indicates mild depression, . H istory of Psychiatric Hospitalizations N one reported at this time.. H istory of Psychiatric and Behavioral Health Treatment N one reported at this time. . S ubstance Use: Current Use Patterns S moking rock cocaine, 1 oz would last about 3 days. . S ubstance of Choice S dmitri for 10 years, prior to to . H istory of substance use A ge 30 starting using cocaine; Taking opiates for pain management after surgery in 2017, helping to ween off, Disabled from work in 2019- 3rd surgery, percocet- hydros- tramadol, moved to acquiring cocaine. . H x of Withdrawal N one reported at this time. Reported history of weigh gain that may be associated with withdrawal.Reports no cravings, use associated with ease of access.. A ssessment of Social Determinants of Health::: Has A PRAPARE Been Completed In The Past Year? H as a PRAPARE Been Completed In The Past Year? Y es, W as It Completed Today Using SmartForm? Y es.? a TBC For Substance Use Services: Who Is Your Primary Care Provider? D o You Have A Primary Care Provider? Y es Dr Peng., D ate of last physical exam 0 -2024 Physical completed as part of admission. Sees doctor regularly for pain management and knee.. D o You Have A Psychiatric Provider? D o You Have A Psychiatric Provider? Y es. D o You Have Any Other Professional Supports? D o You Have Any Other Professional Supports Y es. C onsent Forms Completed C onsent Forms C onsent To Treat, Health Care Providers, Emergency Contact, Probation/Belva. D epression Screening: PHQ-9 L ittle interest or pleasure in doing things M ore than half the days, F eeling down, depressed, or hopeless N ot at all, T rouble falling or staying asleep, or sleeping too much N ot at all, F eeling tired or having little energy N ot at all, P oor appetite or overeating N ot at all, F eeling bad about yourself or that you are a failure, or have let yourself or your family down S everal days, T rouble concentrating on things, such as reading the newspaper or watching television N ot at all, M oving or speaking so slowly that other people could have noticed; or the opposite, being so fidgety or restless that you have been moving around a lot more than usual N early every day, T houghts that you would be better off or of hurting yourself in some way N ot at all, T otal Score 6 , I nterpretation M ild Depression. C SSRS Interpretation and Follow Up Plan: CSSRS Interpretation and Follow Up Plan C SSRS Screen documented using SF Y es, R isk Disposition from SF L ow - No Follow Up Plan Required, F ollow Up Plan N o Follow Up Plan required at this time., T imeframe of Screening T pooja.? S creening: Finney Suicide Severity Rating Scale (LF) D o you want to initiate with S creener form, 1 . Wish to be : Have you wished you were or wished you could go to sleep and not wake up? N o, 2 . Suicidal Thoughts: Have you actually had any thoughts of killing yourself? N o, 6 . Suicide Behavior Question: Have you ever done anything,started to do anything, or prepared to end your life? N o, I nterpretation: L ow Risk. * Medical History: * Surgical History: * Hospitalization/Major Diagno stic Procedure: * Social History: S ocial Determinants: David Hidalgo ate Completed/Updated: 0 02/15/2025, W hat is your current housing situation? I have housing, A re you worried about losing your housing? N o, W hat is the highest level of school that you have finished? H igh school diploma or GED, W hat is your current work situation? O therwise unemployed but not seeking work (ex. student, retired, disabled, unpaid primary direct care counselor), I n the past year, have you or any family members you live with been unable to get any of the following when it was really needed? Check all that apply I do not have problems meeting my needs, H as lack of transportation kept you from medical appointments, meetings, work or from getting things needed for daily living? N o, H ow often do you see or talk to people that you care about and feel close to? (For example: talking to friends on the phone, visiting friends or family, going to gnosticist or club meetings) M ore than 5 times a week, How stressed are you? Stress is when someone feels tense, nervous, anxious, or can\t sleep at night because their mind is troubled A little bit, I n the past year have you spent more than 2 nights in a row in a fci, group home, senior living center, or juvenile correctional facility? N o,?Are you a refugee? I choose not to answer this question, W hat country are you from? I choose not to answer this question, D o you feel physically and emotionally safe where you currently live? Y es, I n the past year, have you been afraid of your partner or ex-partner??No, P RAPARE Score: 5 . T obacco Use: T obacco Control (Standard) T obacco use: C urrent some day smoker. * Medications: Objective: * Vitals: * Examination: M ental Status Exam: ATTENTION AND CONCENTRATION N o deficits. APPEARANCE A ppropriate, Appears stated age, Neatly dressed and groomed. ATTITUDE AND BEHAVIOR C ooperative,Suspicious. EYE CONTACT G ood. AFFECT B road/Full. MOOD E uthymic. INSIGHT G ood. JUDGMENT F air. Assessment: * Assessment: 1. C ocaine abuse - F14.10 (Primary) 2 . O pioid use disorder - F11.99 Plan: * Treatment: * Procedure Codes: 9 0791 PSYCH DIAGNOSTIC EVALUATION, Modifiers: AJ CHS08 [facility] Service * Follow Up: p rn * * Sign off status: Completed true * Provider: Diego Painter, QUALITY CONTROL SYSTEMS MANAGER Date: 02/15/2025 Generated for Brayden cardenas/Trini/Fidel on: 02/15/2025 09:24 PM CDT History and Physical Notes * HPI (History of Present Illness) Category Sub-Category Detail Notes Category Not es Depression Screening PHQ-9 Little inte rest or [...] all Total Score: 6 Interpretation: Mild Depression Psychiatric Assessment - Current Symptoms Primary concern today Admitting today for Men's Residential 28 day program Overview of Mental Health Symptoms PHQ9 indicates mild depression, History of Psychiatric Hospitalizations None reported at this time. History of Psychiatric and B ehavioral Health Treatment None reported at this time. Substance Use History of substance use Age 30 starting using cocaine; Taking opiates for pain management after surgery in 2017, helping to ween off, Disabled from work in 2018- 3rd surgery, percocet- hydros- tramadol, moved to acquiring cocaine. Hx of Withdrawal None reported at [facility] s time. Reported history of weigh gain that may be associated with withdrawal.Reports no cravings, use associated with ease of access. Substance of Choice Sober for 10 years, prior to to Current Use Patterns Smoking rock cocain e, 1 oz would last about 3 days. Screening Finney Suicide Sev erity Rating Scale (LF) Do [...] end your life?: No Interpretation:: Low Risk Assessment of Social Determinants of Health:: Has A PRAPARE Been Completed In The Past Year? Has a PRAPARE Been Completed In The Past Year?: Yes Was It Completed Today Using SmartInnoCentive?: Yes aT For Substance Use Services Who Is Your Primary Care Provider? Do You Have A Primary Care Provider?: Yes Dr Peng. Date of last physical exam: Phys ical completed as part of admission. Sees doctor regularly for pain management and knee. Do You Have A Psychiatric Provider? Do You Have A Psychiatric Provider?: Yes Do You Have Any Other Profes sional Supports? Do You Have Any Other Professional Supports: Yes Consent Forms Completed Consent Forms: C onsent To Treat, Health Care Providers, Emergency Contact, Probation/Belva CSSRS Interpretation and Follow Up Plan CSSRS Interpretation and Follow Up Plan CSSRS Screen documented using SF: Yes Risk Disposition from SF: Low - No Follo w Up Plan Required Follow Up Plan: No Follow Up Plan requir ed at this time. Timeframe of Screening: Today Examination Category Sub-Category Detail Notes Category Not es Mental Status Exam ATTENTION AND CONCENTRATION No defi cits APPEARANCE Appropriate, Appears stated age, Neatly dressed and groomed ATTITUDE AND BEHAVIOR Cooperative, Suspi cious EYE CONTACT Good AFFECT Broad/Full MOOD Euthymic INSIGHT Good JUDGMENT Fair
--- OUTSIDE RECORDS SUMMARY | 2025-02-15 21:24 | XMS_ITS | Encounter Summary ---
Author Organization [facility] Address [address] [place] [address] Phone Care Team Providers Care Cake Inspector Name Role Phone Gee Zuñiga MD Primary Care Provider Reason for Visit * Reason Onset Date Comments Appointment Request 04/17/2012 Encounter Details Date Type Department Care Team (Late st Contact Info) Description 04/17/2012 Telephone Foot & Ankle on [facility] [address] [place], [place] [id number] Jet Sahni DPM [address] [place], [place] [phone] Appointment Request Social History Tobacco Use Types Packs/Day Years Used Date Smoking Tobacco: Every Day Comments:2 cigarettes a day Alcohol Use Standard Drinks/Week Comments No 0 (1 standard drink = 0.6 oz pur e alcohol) Sex and Gender Information Value Date Recorded Sex Assigned at Not on file 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 Sahni. * Telephone Encounter - Jet Sahni DPM - 04/18/2012 10:17 AM CDT Please have them bring MRI CD Schedule them 145 04/28 * Telephone Encounter - Lila Velasquezgy - 04/17/2012 12:[address] Eduard Ramirez [place] had patient have an MRI of the right foot , osteochondral lesion left talus, tenosynovitis of posterior tibial tendon were noted. documented in this encounter Plan of Treatment Upcoming Encounters Date Type Department Care Team (Late st Contact Info) Description 03/04/2025 1:10 PM CDT Office Visit Dermatology on [facility] [address] [place] [address] Ziggy Smith MD [address] [place] [address] documented as of this encounter Visit Diagnoses Not on filedocumented in this encounter Care Teams Cake Inspector Relationship Specialty Start Date End Date Gee Zuñiga MD [address] [place] [address] PCP - General 11/27/20 documented as of this encounter
--- OUTSIDE RECORDS SUMMARY | 2025-02-15 21:24 | XMS_ITS | Encounter Summary ---
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 No / Unsure 01/11/2022 11:48 AM CDT documented as of this encounter Plan of Treatment Not on file documented as of this encounter Results * SARS-COV-2 BY PCR ([facility] ONLY) (01/12/2022 7:57 AM CDT) [id number] NOT DETECTED Not Detected [facility] [place] ID NOW 01/12/2022 8:35 AM CDT [facility] Swab NASOPHARYNGEAL STRUCTURE / Unknown Non-Phlebotomy Collection / Unknown 01/12/2022 7:57 AM CDT 01/12/2022 8:12 AM CDT Narrative [facility] - 01/12/2022 8:35 AM CDT Methodology by [place] ID NOW nucleic acid amplification. For more information go to www.cdc.gov/COVID19 us Rubén Hill MD LAB SEND OUTS Final Resul t [facility] [address] [place] [address] documented in this encounter Visit Diagnoses Diagnosis Preop testing- Primary Preoperative examination, unspecified documented in this encounter Additional Health Concerns Infection Onset Date Last Indicated Resolved Time PUI 01/11/2022 01/12/2022 01/12/2022 8:35 AM CDT Assessment Noted Time PHQ-9 Depression Total Score: 0 10/21/19 21 4:00 PM WELDER FITTER APPRENTICE documented as of this encounter Care Teams Software Engineer Intern Relationship Specialty Start Date End Date Na Skinner MD [address] [place] [phone] (Fax) PCP - General Family Medicine 09/30/20 documented as of this encounter
--- OUTSIDE RECORDS SUMMARY | 2025-02-15 21:24 | XMS_ITS | Patient Health Record ---
Author Organization [facility] Address [address] [place] [address] Care Team Providers Care Network Engineer Administrator Name Role Phone Kapil Tierraelizabeth Primary Care Provider Deniz Kingsley Unavailable [phone] Helen Painter Unavailable [phone] Allergies No Known Allergies Results Component Value Reference Range Notes Breathalyzer Reviewed date:02/15/2025 12:27:42 PM Interpretation: Performing Lab: Notes/Report: AME 0.000 12 Panel Urine Drug Screen Reviewed date:02/15/2025 11:41:06 AM Interpretation: Performing Lab: Notes/Report: THC neg BEATA POS MOP (OPI) neg AMP neg MET neg BAR neg BZO neg MDMA neg MTD neg OXY neg PCP neg BUP neg Reason For Referral No Information Medications Medication SIG (Take, Route, Frequency, Duration) [...] work (ex. 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 Stress is when someone feels tense, nervous, anxious, or can\t sleep at night because their mind is troubled A little bit In the past year have you sp ent more than 2 nights in a row in a custodial, half-way, skilled nursing center, or juvenile correctional facility? 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) Active confirmed Vital Signs Heart Rate 86 /min 02/15/2025 Temperature 97.3 degrees Fahrenheit 02/15/2025 Respiratory Rate 16 /min 02/15/2025 Blood pressure diastolic 98 mm Hg 02/15/2025 Oximetry 98 % 02/15/2025 Height 66 in 02/15/2025 Blood pressure systolic 148 mm Hg 02/15/2025 Weight 196.4 lbs 02/15/2025 BMI 31.7 kg/m2 02/15/2025 Encounters Encounter Location Date Provider Diagnosis [facility] [address] [place] [address] 02/15/2025 Deniz Kingsley Cocaine abuse F14.10 ; [...] associated with disorder of lumbar spine M53.86 [facility] [address] [place] [address] 02/15/2025 Helen Inocencio Cocaine abuse F14.10 and Opioid use disorder F11.99 Assessments Encounter Date Diagnosis (ICD Code) Assessment Notes Treatment Notes Treatment Clinical Notes Section Notes 02/15/2025 Cocaine abuse (ICD-10 - F14.10) 02/15/2025 Opioid use disorder (ICD-10 - F11.99) 02/15/2025 Cocaine abuse (ICD-10 - F14.10) 02/15/2025 [...] 12/22/2024 KEZIA SIGNED FOR RECORDS FROM PCP 02/15/2025 Other Clinician met w ith client to assess needs for residential services. Clinician gathered information regarding historical presentation of mental health and substance use symptoms including withdrawal, psychiatric hospitalization history and presenting concern. Clinician conducted PHQ9 and CSSRS assessments as well as social drivers of health screening for the purposes of identifying additional service needs. Plan Of Treatment Pending Test Test Name Order Date HIV Screen *HIV 1, 2 Ab, p24 Ag ([id number]) 02/15/2025 Occult Blood, Fecal, [place] ([id number]) 025 Hemoglobin A1c* 02/15/2025 CBC With Differential/Platelet* 02/16/20 25 Hepatitis B Surface Antigen (HBsAg Scree n) 02/15/2025 C-Reactive Protein, Quant 02/15/2025 Hepatitis C Virus Antibody w/Rflx to Eusebio ntitative Real-time PCR ([id number]) 02/15/2025 Lipid Panel* 02/15/2025 CMP 14 Comprehensive Metabolic Panel* TSH Rfx on Abnormal to Free T4 5 QuantiFERON-TB Gold Plus ([id number]) 2024 Rapid Plasma Reagin (RPR) Te st With Reflex to Quantitative RPR and Confirmatory Treponema pallidum Antibodies 02/15/2025 Medical (General) History Surgical History Surgery Date(Month/Year) 13 surgeries on right knee CARPAL TUNNEL SURGERY tonsillectomy multiple hernia repairs Hospitalization History Reason Date(Month/Year) ulcer
--- OUTSIDE RECORDS SUMMARY | 2025-02-15 21:24 | XMS_ITS | Encounter Summary ---
Author Organization [facility] Address [address] [place] [address] Phone Care Team Providers Care It Service Continuity Supervisor Name Role Phone Gee Zuñiga MD Primary Care Provider Encounter Details Date Type Department Care Team (Late st Contact Info) Description 02/14/2019 Telephone [facility] [address] [place] [address] Gena Lira MD Social History Tobacco Use Types Packs/Day Years Used Date Smoking Tobacco: Some Days Smokeless Tobacco: Never Comments:social Alcohol Use Standard Drinks/Week Comments No 0 (1 standard drink = 0.6 oz pur e alcohol) Sex and Gender Information Value Date Recorded Sex Assigned at Not on file 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 However, patient did not show for his stat exam this afternoon. If he calls back, he can be scheduled into next available exam time. Thanks! * Telephone Encounter - Liz Ferro - 02/14/2019 2:57 PM CDT There is no conversation attached. documented in this encounter Plan of Treatment Upcoming Encounters Date Type Department Care Team (Late st Contact Info) Description 03/04/2025 1:10 PM CDT Office Visit Dermatology on [facility] [address] [place] [address] Ziggy Smith MD [address] [place], [place] [phone] documented as of this encounter Visit Diagnoses Not on filedocumented in this encounter Additional Health Concerns Assessment Noted Time A Hypertension Plan of Care has been documented for the patient 02/13/2019 3:07 PM CDT documented as of this encounter Care Teams It Service Continuity Supervisor Relationship Specialty Start Date End Date Gee Zuñiga MD [address] [place] [address] PCP - General 11/27/20 documented as of this encounter
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
--- OUTSIDE RECORDS SUMMARY | 2025-02-15 21:24 | XMS_ITS | Encounter Summary ---
Author Organization [facility] Address [address] [place] [address] Phone Care Team Providers Care Baggage Clerk Name Role Phone Gee Zuñiga MD Primary Care Provider Encounter Details Date Type Department Care Team ([facility] Contact Info) Description 01/07/2015 Transcribe Orders [facility] [address] [place] [address] Gee Zuñiga MD [address] [place] [address] Social History Tobacco Use Types Packs/Day Years Used Date Smoking Tobacco: Some Days Comments:social Alcohol Use Standard Drinks/Week Comments No 0 (1 standard drink = 0.6 oz pur e alcohol) Sex and Gender Information Value Date Recorded Sex Assigned at Not on file 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
--- OUTSIDE RECORDS SUMMARY | 2025-02-15 21:24 | XMS_ITS | Encounter Summary ---
Author Organization [facility] Address [address] [place] [address] Phone Care Team Providers Care Manual Writer Name Role Phone Na Skinner MD Primary Care Provider Reason for Referral * Radiology Services (Routine) - Closed Specialty Diagnoses / Procedures Referred By Contac t Referred To Contact Radiology Diagnoses Fibrosis of right knee joint Preop testing Procedures EKG 12 LEAD Rubén Hill MD [address] [place] [address] Phone: tel: fax: Referral ID Status Reason Start Date Expiration Date Visits Re quested Visits Authorized [id number] Closed 09/25/2020 1 1 OND DRILLER * Radiology Services (Routine) - Closed Specialty Diagnoses / Procedures Referred By Contac t Referred To Contact Radiology Diagnoses Fibrosis of right knee joint Preop testing Procedures XR CHEST 2 VIEWS Rubén Hill MD [address] [place] [address] Phone: tel: fax: Referral ID Status Reason Start Date Expiration Date Visits Re quested Visits Authorized [id number] Closed 09/25/2020 1 1 OND DRILLER Encounter Details Date Type Department Care Team (Latest Contact Info) Description 09/25/2020 Transcribe Orders [facility] [address] [place] [address] Rubén Hill MD [address] [place] [id number] Monitoring for anticoagulant use (Primary Dx); Fibrosis of right knee joint; Screening examination for infectious disease; Preop testing Social History Tobacco Use Types Packs/Day Years Used Date Smoking Tobacco: Former Cigarettes Smokeless Tobacco: Never Alcohol Use Standard Drinks/Week Comments Not Currently 0 (1 standard drink = 0.6 oz pur e alcohol) Sex and Gender Information Value Date Recorded Sex Assigned at Not on file Legal Sex Male 8:16 PM DIAMOND DRILLER Gender Identity Not on file Sexual Orientation Not on file documented as of this encounter Plan of Treatment Not on file documented as of this encounter Results * EKG 12 LEAD (09/30/2020 11:10 AM DIAMOND DRILLER) Ventricular Rate 74 BPM EXTERNAL EKG Atrial Rate 74 BPM EXTERNAL EKG P-R Interval 156 ms EXTERNAL EKG QRS Duration 84 ms EXTERNAL EKG Q-T Duration 376 ms EXTERNAL EKG QTC CALCULATION 417 ms EXTERNAL EKG P [place] 50 degrees EXTERNAL EKG R [place] 63 degrees EXTERNAL EKG T [place] 45 degrees EXTERNAL EKG 09/30/2020 11:1 0 AM DIAMOND DRILLER 09/30/2020 12:47 PM DIAMOND DRILLER Impressions EXTERNAL EKG - 09/30/2020 12:47 PM DIAMOND DRILLER Normal sinus rhythmNormal ECGNo previous ECGs availableConfirmed by KEYON WASHINGTON MD ([id number]) on 09/30/2020 12:47:53 PM Narrative Procedure Note Keyon Washington MD - 09/30/2020 IMPRESSION: Normal sinus rhythmNormal ECGNo previous ECGs availableConfirmed by KEYON SUTTON ([id number]) on 09/30/2020 12:47:53 PM us Rubén Hill MD IMG ECG ORDERABLES Final Re sult EXTERNAL EKG * XR CHEST 2 VIEWS (09/30/2020 10:10 AM DIAMOND DRILLER) Anatomical Region Laterality Modality Chest N/A Computed Radiogr aphy Narrative 09/30/2020 10:16 AM DIAMOND DRILLER EXAMINATION: XR CHEST 2 VIEWS 09/30/2020 INDICATIONS: Ankylosis, right knee. Fibrosis of right knee joint, preoperative testing, GERD, prior tobacco use COMPARISON: None. TECHNIQUE: Two views the chest include PA and lateral. FINDINGS: The heart size and mediastinum appear normal. The lungs appear clear. Degenerative changes of the thoracic spine can be seen. IMPRESSION No acute cardiopulmonary disease. Dictation location [facility] Electronically signed by: DIONISIO COLLINS MD Date of Signature: 09/30/2020 10:16:05 Procedure Note Dionisio Collins MD - 09/30/2020 EXAMINATION: XR CHEST 2 VIEWS 09/30/2020 INDICATIONS: Ankylosis, right knee. Fibrosis of right knee joint, preoperativetesting, GERD, prior tobacco use COMPARISON: None. TECHNIQUE: Two views the chest include PA and lateral. FINDINGS: The heart size and mediastinum appear normal. The lungs appear clear. Degenerative changes of the thoracic spine can be seen. IMPRESSION No acute cardiopulmonary disease. Dictation location [facility] Electronically signed by: DIONISIO COLLINS MD Date of Signature: 09/30/2020 10:16:05 Rubén Hill MD IMG DIAGNOSTIC ORDERABLES F inal Result * (ABNORMAL) Erythrocyte Sedimentation Rate (ESR) (09/30/2020 9:58 AM DIAMOND DRILLER) ESR (SED RATE, ERYTHROCYTE SEDIMENTATION RATE) 20(H) 0 - 15 mm/h 09/30/2020 1:25 PM DIAMOND DRILLER [facility] Blood Venipuncture / Unknown 09/30/2020 9:58 AM DIAMOND DRILLER 09/30/2020 9:58 AM DIAMOND DRILLER Rubén Hill MD HEMATOLOGY ORDERABLES Final Result [id number] [place] [address] * CRP, DMH (09/30/2020 9:58 AM DIAMOND DRILLER) C-REACITVE PROTEIN 4.4 0.0 - 5.0 mg/L 09/30/2020 1:05 PM DIAMOND DRILLER [facility] Blood Venipuncture / Unknown 09/30/2020 9:58 AM DIAMOND DRILLER 09/30/2020 9:58 AM DIAMOND DRILLER us Rubén Hill MD CHEMISTRY ORDERABLES Final Result Performing Organization Address [facility] Co de Phone Number [address] [address] * APTT (PTT) (09/30/2020 9:58 AM DIAMOND DRILLER) Pathologist [facility] PTT 27 24 - 36 sec 09/30/2020 3:04 PM DIAMOND DRILLER [facility] Blood Venipuncture / Unknown 09/30/2020 9:58 AM DIAMOND DRILLER 09/30/2020 9:58 AM DIAMOND DRILLER us Rubén Hill MD HEMATOLOGY ORDERABLES Final Result Performing Organization Address [facility] Co de Phone Number [address] [address] * Culture, MRSA Screen (09/30/2020 9:58 AM DIAMOND DRILLER) [facility] CULTURE RESULTS NO MRSA ISOLATED AFTER 1 DAY 10/01/2020 2:08 PM DIAMOND DRILLER [facility] Culture NASAL STRUCTURE / Unknown Non-Phlebotomy Collection / Unknown 09/30/2020 9:58 AM DIAMOND DRILLER 09/30/2020 9:58 AM DIAMOND DRILLER us Rubén Hill MD MICROBIOLOGY - GENERAL [facility] Final Result Performing Organization Address [facility] de Phone Number [address] [address] * (ABNORMAL) CMP (Comprehensive Metabolic Panel) (09/30/2020 9:58 AM DIAMOND DRILLER) Pathologist [facility] SODIUM 144 133 - 145 mmol/L 09/30/2020 1:05 PM [facility] POTASSIUM 4.6 3.5 - 5.1 mmol/L 09/30/2020 1:05 PM [facility] CHLORIDE 111(H) 96 - 108 mmol/L 09/30/2020 1:05 PM [facility] CO2, VENOUS 25 21 - 32 mmol/L 09/30/2020 1:05 PM [facility] ANION GAP 12.6 10.0 - 20.0 mmol/L 09/30/2020 1:05 PM [facility] GLUCOSE 67(L) 70 - 105 mg/dL 09/30/2020 1:05 PM [facility] BUN 9 6 - 19 mg/dL 09/30/2020 1:05 PM [facility] CREATININE, BLOOD 0.70 0.50 - 1.30 mg/dL 09/30/2020 1:05 PM [facility] BUN/CREATININE RATIO 13 12 - 20 ratio 09/30/2020 1:05 PM [facility] TOTAL PROTEIN 7.4 6.2 - 8.4 g/dL 09/30/2020 1:05 PM [facility] ALBUMIN 3.9 3.5 - 5.0 g/dL 09/30/2020 1:05 PM [facility] CALCIUM 9.1 8.4 - 10.2 mg/dL 09/30/2020 1:05 PM [facility] T BILI 0.2 0.0 - 1.0 mg/dL 09/30/2020 1:05 PM [facility] SGOT (AST) 16 0 - 37 U/L 09/30/2020 1:05 PM [facility] SGPT (ALT) 25 12 - 55 U/L 09/30/2020 1:05 PM [facility] ALKALINE PHOSPHATASE 159(H) 39 - 117 U/L 09/30/2020 1:05 PM [facility] GFR, EST. NONAFRICAN >60 09/30/2020 1:05 PM [facility] Comment: Reference interval for MDRD GFR: GFR >=60: Satisfactory kidney function GFR <60: Chronic kidney disease GFR <15: Kidney failure Estimated GFR may be less reliable in patients >70yr, women, patients with serious comorbid conditions, or patients with extremes of body size, muscle mass, or nutritional status. Revised 11/29/07 (National Kidney Disease Education Program) GFR, EST. >60 >=60 021 1:05 PM [facility] Comment: Reference interval for MDRD GFR: GFR >=60: Satisfactory kidney function GFR <60: Chronic kidney disease GFR <15: Kidney failure Estimated GFR may be less reliable in patients >70yr, women, patients with serious comorbid conditions, or patients with extremes of body size, muscle mass, or nutritional status. Revised 11/29/07 (National Kidney Disease Education Program) Blood Venipuncture / Unknown 09/30/2020 9:58 AM DIAMOND DRILLER 09/30/2020 9:58 AM [facility] - 09/30/2020 1:05 PM DIAMOND DRILLER Venipuncture should occur prior to sulfasalazine and/or sulfapyridine administration due to the potential for falsely depressed results for ALT and AST. Glucose can be falsely depressed after administration of sulfasalazine, and falsely elevated with administration of sulfapyridine. us Rubén Hill MD CHEMISTRY ORDERABLES Final Result [address] [address] * PROTIME (PT) (PROTHROMBIN TIME) (09/30/2020 9:58 AM DIAMOND DRILLER) PROTIME-PATIENT 9.6 9.3 - 11.6 sec 09/30/2020 3:04 PM [facility] Comment: Protime testing is performed using a recombinant human thromboplastin (Innovin) with an ROSA approximating 1.0. INR 0.9 0.9 - 1.1 09/30/2020 3:04 PM [facility] Comment: Recommended Ranges: Standard oral anticoagulant INR: 2.0 - 3.0 High dose therapy INR: 2.5 - 3.5 Blood Venipuncture / Unknown 09/30/2020 9:58 AM DIAMOND DRILLER 09/30/2020 9:58 AM DIAMOND DRILLER us Rubén Hill MD HEMATOLOGY ORDERABLES Final Result [facility] [address] [place] [address] documented in this encounter Visit Diagnoses Diagnosis Monitoring for anticoagulant use- Primary Encounter for long-term (current) use of anticoagulants Fibrosis of right knee joint Screening examination for infectious disease Screening examination for unspecified infectious disease Preop testing Preoperative examination, unspecified Fibrosis of right knee joint Preop testing Preoperative examination, unspecified Monitoring for anticoagulant use Encounter for long-term (current) use of anticoagulants Screening examination for infectious disease Screening examination for unspecified infectious disease Fibrosis of right knee joint Preop testing Preoperative examination, unspecified documented in this encounter Additional Health Concerns Infection Onset Date Last Indicated Resolved Time PUI 01/11/2022 01/12/2022 01/12/2022 8:35 AM CDT documented as of this encounter Care Teams Manual Writer Relationship Specialty Start Date End Date Na Skinner MD [address] [place] [address] PCP - General Family Medicine 09/30/20 documented as of this encounter
--- OUTSIDE RECORDS SUMMARY | 2025-02-15 21:24 | XMS_ITS | Encounter Summary ---
Author Organization [facility] Address [address] [place] [address] Phone Care Team Providers Care Web Application Tester Name Role Phone Gee Zuñiga MD Primary Care Provider Reason for Visit * Reason Onset Date Comments Refill Request 11/01/2011 Encounter Details Date Type Department Care Team ([facility] Contact Info) Description 11/01/2011 Refill [facility] [address] [place] [address] Sony Mayer MD [address], [place] [address] Refill Request Social History Tobacco Use Types Packs/Day Years Used Date Smoking Tobacco: Every Day Comments:2 cigarettes a day Alcohol Use Standard Drinks/Week Comments No 0 (1 standard drink = 0.6 oz pur e alcohol) Sex and Gender Information Value Date Recorded Sex Assigned at Not on file 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 Gender Identity Not on file Sexual Orientation Not on file documented as of this encounter Plan of Treatment Upcoming Encounters Date Type Department Care Team (Late Contact Info) Description 03/04/2025 1:10 PM CDT Office Visit [facility]at[facility] [address] [place] [address] Ziggy Smith MD [address] [place], [place] [id number] documented as of this encounter Visit Diagnoses Not on filedocumented in this encounter Care Teams Web Application Tester Relationship Specialty Start Date End Date Gee Zuñiga MD [address] [place] [address] PCP - General 11/27/20 documented as of this encounter
[2025-02-15] MEDS: LIDOCAINE 5% PATCH 1 PATCH TRANSDERM (22:30)
[2025-02-15] MEDS: HYDROcodone/acetaminophen (*CRX) 5-325 MG TABLET 1 TAB PO (22:30)
[2025-02-15 22:51] VITALS: PULSE 79; RESP 16; O2SAT 98
--- NOTE | 2025-02-16 00:48 | PC.NURSE ---
patient educated upon discharge about correct use of incentive spirometer use. patient able to correctly demonstrate appropriate use of incentive spirometer.
--- NOTE | 2025-02-16 01:15 | PC.NURSE ---
this rn called juan and spoke with a nurse to give nurse to nurse report and also to Pradip to give patient update
== END 2025-02-16 00:59 | disposition home or self-care (01) ==
PROVIDERS: Emergency Provider Student in an Organized Health Care Education/Training Program
DX: S09.90XA Unspecified injury of head, initial encounter (principal); S22.31XA Fracture of one rib, right side, initial encounter for closed fracture; S49.91XA Unspecified injury of right shoulder and upper arm, initial encounter; F14.90 Cocaine use, unspecified, uncomplicated; M50.322 Other cervical disc degeneration at C5-C6 level; M48.02 Spinal stenosis, cervical region; W01.198A Fall on same level from slipping, tripping and stumbling with subsequent striking against other object, initial encounter
CPT/HCPCS: 70450; 71100; 72125; 73030; 96374; 99284; A9270; J1171

== ENCOUNTER 2025-02-27 09:09 | Emergency (ER) | payer MEDICARE, SELFPAY ==
--- NOTE | ~2025-02-27 | CT_ITS ---
CT brain wo con Ordering provider: Neda Sheikh PA-C History: 59 years Male with . AMS . Comparison: February 16, 2024 Technique: CT of the head without contrast. Radiation reduction technique utilized.The dose-length pr oduct was 605.33 mGy-cm. FINDINGS: BRAIN PARENCHYMA AND CSF SPACES: Old lacunar infarct in the left basal ganglia. No midline shift, mas s effect or hemorrhage. The brain parenchyma and CSF spaces are otherwise normal. VISUALIZED PARANASAL SINUSES: Bilateral ethmoid sinus disease. MASTOIDS: Well aerated. BONES: The bones appear intact. SOFT TISSUES: Visualized nasopharynx is normal. Superficial soft tissues are normal. IMPRESSION: No acute intracranial findings. Reviewed, dictated and finalized at location A.
--- NOTE | ~2025-02-27 | XR_ITS ---
XR chest 2V Ordering provider: Alex Rodriguez MD History: 59 years Male with . PT STATES HE HAS CHEST PAIN SINCE LAST WEEK . Comparison: February 15, 2025 FINDINGS: MEDIASTINUM: The cardiac silhouette is not enlarged. LUNGS: No infiltrates, effusions or pneumothorax. OTHER: No free air under the diaphragm. IMPRESSION: No acute cardiopulmonary pathology. Reviewed, dictated and finalized at location A.
[2025-02-27 09:04] VITALS: BP 152/84; PULSE 65; RESP 12; TEMP 36.7; O2SAT 100
--- NOTE | 2025-02-27 09:11 | ECG_ITS ---
Test Date: 2025-02-27 09:13:07 Measurements Intervals [place] Rate: 61 P: 31 DC: 165 QRS: 39 QRSD: 87 T: 32 QT: 383 QTc: 387 Interpretive Statements SINUS RHYTHM DELAYED PRECORDIAL R/S TRANSITION BASELINE ARTIFACT- V5 BORDERLINE ECG No previous ECG available for comparison Electronically Signed On 02-27-2025 10:31:51 CDT by Dennis Chinchilla D.O.
[2025-02-27 09:14] VITALS: O2SAT 100
--- NOTE | 2025-02-27 09:30 | ED_ITS ---
HPI - Chest Pain General Chief Complaint: Chest Pain Stated Complaint: AMS, CP Time Seen by Provider: 02/27/25 09:13 Source: patient Mode of arrival: EMS Limitations: other (patient does not fully remember incident) History of Present Illness HPI narrative: This is a 59 year old male that presents to the ER for chest pain. Ongoing intermittently over the last week. Reports the pain feels like a tightness. No known alleviating or exacerbating factors. No other associated symptoms. Denies fever, cough, shortness of breath, swelling in his legs. Reports he was sent in today from his rehab facility as he did not seem himself this morning. Related Data Allergies Allergy/AdvReac Type Severity Reaction Status Date / Time No Known Allergies Allergy Verified 02/27/25 09:15 Review of Systems 2 Review of Systems: All systems reviewed & are unremarkable except as noted in HPI and below PMFSH Past Medical History Medical History (Updated 02/27/25 @ 12:22 by Neda Sheikh PA-C) History of cocaine abuse Exam 2 Narrative: GENERAL: Well-appearing, well-nourished, and in no acute distress. HEAD: Normocephalic, atraumatic. EYES: PERRLA and EOMI. ENT: Nares clear, no rhinorrhea or epistaxis. Mucous membranes moist. Oropharynx without tonsillar hypertrophy exudate or other lesions. Bilateral TMs pearly [place] non-bulging NECK: Supple. No adenopathy or masses. CHEST: Clear to auscultation. No respiratory distress. No wheezes rales or rhonchi HEART: Regular rate and rhythm. No murmur heard. Normal peripheral pulses. EXTREMITIES: Normal range of motion. No edema. Strength equal in bilateral upper and lower extremities (5/5) SKIN: Warm, dry, no rash. NEURO: No focal deficits. Alert and oriented x3. Cranial nerves 2-12 grossly intact PSYCH: Normal mood and affect Course Course Emergency Course: patient updated on his workup and agrees with plan of care Vital Signs Vital signs: Vital Signs Temperature 98.0 F 02/27/25 09:04 Pulse Rate 65 02/27/25 09:04 Respiratory Rate 12 02/27/25 09:04 Blood Pressure 152/84 H 02/27/25 09:04 Pulse Oximetry 100 02/27/25 09:04 Oxygen Delivery Room Air 02/27/25 09:04 Temperature 98.0 F 02/27/25 09:04 Pulse Rate 69 02/27/25 11:46 Respiratory Rate 15 02/27/25 11:46 Blood Pressure 142/79 H 02/27/25 11:46 Pulse Oximetry 100 02/27/25 11:46 Oxygen Delivery Room Air 02/27/25 09:14 MDM - Chest Pain MDM Narrative Medical decision making narrative: Patient presents to the ER for chest pain. Ongoing intermittently over the last week. Patient's vitals are stable. Cbc shows normocytic anemia hemoglobin 12.8. Metabolic panel without concerning findings. EKG without acute ST changes, baseline and 3 hour troponin are negative. BNP is not elevated. Chest x-ray without acute cardiopulmonary abnormality. Rehab facility reporting an episode of altered mental status. He is alert and oriented in upon arrival to the ER. Neurologically intact. Drug screen is negative. Alcohol level is not elevated. CT brain without acute findings. Patient updated on his workup and agrees with plan of care. His heart score is 1. He is to follow up with primary provider for further evaluation. He was given warnings to return to the ER Differential Diagnosis Differential diagnosis: Likely stable angina, atypical chest pain, costochondritis and chest pain Lab Data Attestation: I reviewed the patient's lab results. 02/27/25 09:24 02/27/25 09:24 Labs: Lab Results 02/27/25 02/27/25 02/27/25 Range/Units 09:24 09:48 12:15 WBC 5.4 (4.5-10.0) K/mm3 RBC 4.66 (4.6-6.20) M/mm3 Hgb 12.8 L (14.0-18.0) g/dL Hct 41.1 L (42.0-52.0) % MCV 88.2 (80-100) fl MCH 27.5 (26-34) pg MCHC 31.1 L (32-36) g/dl RDW 15.0 H (11.5-14.5) % Plt Count 323 (150-375) k/mm3 MPV 8.4 (7.4-10.4) fl Immature Gran % (Auto) 0.4 (0-0.5) % Neut % (Auto) 43.3 L (45.5-73.1) % Lymph % (Auto) 36.1 (18.3-44.2) % [place] % (Auto) 10.2 H (2.6-8.5) % Eos % (Auto) 8.7 H (0-4.4) % Baso % (Auto) 1.3 H (0.2-1.2) % Lymph # (Auto) 1.94 (0.9-3.2) K/mm3 [place] # (Auto) 0.6 (0.1-0.6) K/mm3 Eos # (Auto) 0.5 H (0-0.3) K/mm3 Baso # (Auto) 0.1 (0.0-0.1) K/mm3 Abs Immat Gran (auto) 0.02 (0.00-0.031) K/mm3 Absolute Neuts (auto) 2.3 (1.3-6.7) K/mm3 Absolute Nucleated RBC 0.000 (0.0-0.012) K/mm3 Nucleated RBC % 0.0 (0.0-0.2) % PT 12.4 (11.1-14.7) Seconds INR 0.9 APTT 26.6 (22.3-36.8) Seconds Sodium 137 (137-145) mmol/L Potassium 4.5 (3.4-5.0) mmol/L Chloride 102 (98-107) mmol/L Carbon Dioxide 29 (22-30) mmol/L Anion Gap 6 (4-12) mmol/L BUN 12 (9-20) mg/dL Creatinine 0.69 L (0.7-1.3) mg/dL Estim Creat Clear Calc 104 ml/min Estimated GFR > 60 (59 - ) Glucose 88 (65-110) mg/dL Calcium 9.1 (8.4-10.2) mg/dL Total Bilirubin 0.3 (0.2-1.3) mg/dL AST 33 (17-59) U/L ALT 24 (6-50) U/L Alkaline Phosphatase 83 (38-126) U/L Troponin I < 0.012 < 0.012 (0.000-0.034) ng/mL NT-Pro-B Natriuret Pep 29 (19.9-100) pg/mL Total Protein 6.4 (6.3-8.2) g/dL Albumin 3.8 (3.5-5.1) g/dL Lipase 199 (23-300) U/L Urine Opiates Screen Negative (Negative) Urine Methadone Screen Negative (Negative) Ur Barbiturates Screen Negative (Negative) Ur Phencyclidine Scrn Negative (Negative) Ur Amphetamine Screen Negative (Negative) U Benzodiazepines Scrn Negative (Negative) Urine Cocaine Screen Negative (Negative) U Cannabinoids Screen Negative (Negative) Ethyl Alcohol < 10 (<10) mg/dL Imaging Data Radiologist's impression: ITS Impressions Chest X-Ray 02/27/25 09:41 IMPRESSION: No acute cardiopulmonary pathology. Head CT 02/27/25 09:46 IMPRESSION: No acute intracranial findings. ECG Data EKG #1: ECG completion date: 02/27/25 EKG Interpretation: normal rate, sinus rhythm, no ST changes and normal QT Critical Care Time Critical Care Time Critical Care Time: No Discharge Plan Discharge Clinical Impression: Chest pain Qualifiers: Chest pain type: unspecified Qualified Code(s): R07.9 - Chest pain, unspecified Anemia Qualifiers: Anemia type: unspecified type Qualified Code(s): D64.9 - Anemia, unspecified Patient Disposition: Home Condition: Stable Instructions: Chest Pain (ED), Anemia (ED) Additional Instructions: Return to the emergency department if you experience fever, chest pain, shortness of breath, abdominal pain with nausea and vomiting, weakness, numbness, or any other symptoms that are concerning to you. Follow up with primary care doctor Patient Language: Tajik Prescriptions: No Action ketorolac 10 mg tablet 10 mg PO Q8H PRN (Reason: pain) 5 Days Qty: 20 0RF Rx Instructions: maximum total duration of 5 days from all oral, intranasal, or parenteral formulations lidocaine 5 % adhesive patch,medicated 1 patch topical DAILY Qty: 15 0RF Rx Instructions: leave on most painful area for up to 12 hrs methocarbamol 750 mg tablet 750 mg PO TID PRN (Reason: pain) Qty: 20 0RF acetaminophen [Tylenol Extra Strength] 500 mg tablet 1,000 mg PO TID PRN (Reason: pain) Qty: 30 0RF Follow-up/Referrals: Henry Davis MD [Physician] - UNKNOWN,DOCTOR [Primary Care Provider] - Quality HEART score for chest pain patients History: slightly suspicious ECG: normal Age: > 45 and < 65 years Risk factors: no risk factors known Troponin: < or = to 1x normal limit Heart score: 1
[2025-02-27 09:36] LABS: Basophils Absolute Auto 0.1 K/mm3 (0.0-0.1); Basophils Percent Auto 1.3 % (0.2-1.2); Eosinophils Absolute Auto 0.5 K/mm3 (0-0.3); Eosinophils Percent Auto 8.7 % (0-4.4); Hematocrit 41.1 % (42.0-52.0); Hemoglobin 12.8 g/dL (14.0-18.0); Immature Granulocyte Absolute 0.02 K/mm3 (0.00-0.031); Immature Granulocyte Percent A 0.4 % (0-0.5); Lymphocytes Absolute Auto 1.94 K/mm3 (0.9-3.2); Lymphocytes Percent Auto 36.1 % (18.3-44.2); Mean Corpuscular HGB Conc 31.1 g/dl (32-36); Mean Corpuscular Hemoglobin 27.5 pg (26-34); Mean Corpuscular Volume 88.2 fl (80-100); Mean Platelet Volume 8.4 fl (7.4-10.4); Monocytes Absolute Auto 0.6 K/mm3 (0.1-0.6); Monocytes Percent Auto 10.2 % (2.6-8.5); Neutrophils Absolute Auto 2.3 K/mm3 (1.3-6.7); Neutrophils Percent Auto 43.3 % (45.5-73.1); Platelet Count Result 323 k/mm3 (150-375); Red Blood Count 4.66 M/mm3 (4.6-6.20); White Blood Count 5.4 K/mm3 (4.5-10.0)
[2025-02-27 09:45] LABS: Alanine Aminotransferase 24 U/L (6-50); Albumin Level 3.8 g/dL (3.5-5.1); Alkaline Phosphatase 83 U/L (38-126); Anion Gap 6 mmol/L (4-12); Aspartate Amino Transferase 33 U/L (17-59); Bilirubin,Total 0.3 mg/dL (0.2-1.3); Blood Urea Nitrogen 12 mg/dL (9-20); Calcium 9.1 mg/dL (8.4-10.2); Carbon Dioxide 29 mmol/L (22-30); Chloride 102 mmol/L (98-107); Estimated CRCL calculation 104 ml/min; Estimated Glomerular Filt Rate > 60; Glucose 88 mg/dL (65-110); Lipase 199 U/L (23-300); Potassium 4.5 mmol/L (3.4-5.0); Sodium 137 mmol/L (137-145); Total Protein 6.4 g/dL (6.3-8.2)
[2025-02-27 09:47] LABS: INR 0.9; Prothrombin Time 12.4 Seconds (11.1-14.7)
[2025-02-27 09:48] LABS: Partial Thromboplastin Time 26.6 Seconds (22.3-36.8)
[2025-02-27 09:57] LABS: NT Pro B Type Natriuretic Pept 29 pg/mL (19.9-100); Troponin I < 0.012 ng/mL (0.000-0.034)
[2025-02-27 09:58] VITALS: PULSE 58; RESP 12; O2SAT 100
[2025-02-27 10:00] LABS: Ethanol < 10 mg/dL (<10)
[2025-02-27 10:12] LABS: Amphetamine Screen Urine Negative (Negative); Barbiturate Screen Urine Negative (Negative); Benzodiazepines Screen Urine Negative (Negative); Cannabinoid Screen Urine Negative (Negative); Cocaine Screen Urine Negative (Negative); Methadone Screen Urine Negative (Negative); Opiate Screen Urine Negative (Negative); Phencyclidine Screen Urine Negative (Negative)
--- NOTE | 2025-02-27 10:50 | PC.NURSE ---
[facility] calling for update on pt status and POC. Spoke to [place].
[2025-02-27 11:46] VITALS: BP 142/79; PULSE 69; RESP 15; O2SAT 100
--- NOTE | 2025-02-27 12:13 | ECG_ITS ---
Test Date: 2025-02-27 12:17:29 Measurements Intervals [place] Rate: 57 P: 21 OR: 162 QRS: 29 QRSD: 90 T: 35 QT: 404 QTc: 394 Interpretive Statements SINUS BRADYCARDIA DELAYED PRECORDIAL R/S TRANSITION MINIMAL Q WAVES- INFERIOR LEADS BORDERLINE ECG Compared to ECG 02/27/2025 09:13:07 NO SIGNIFICANT CHANGE Electronically Signed On 02-27-2025 12:37:48 CDT by Dennis Chinchilla D.O.
[2025-02-27 12:41] LABS: Troponin I < 0.012 ng/mL (0.000-0.034)
[2025-02-27] MEDS: KETOROLAC 15 MG/ML VIAL (*BKC) IV PUSH (13:35)
[2025-02-27 13:39] VITALS: BP 152/89; PULSE 58; RESP 20; O2SAT 98
== END 2025-02-27 13:40 | disposition home or self-care (01) ==
PROVIDERS: Emergency Medicine; Emergency Provider Physician Assistant
DX: R07.9 Chest pain, unspecified (principal); D64.9 Anemia, unspecified; F14.11 Cocaine abuse, in remission
CPT/HCPCS: 36415; 70450; 71046; 80053; 80307; 82077; 83690; 83880; 84484; 85025; 85610; 85730; 93005; 96374; 99284; J1885